=== PATIENT | female | born 1940 | race Caucasian/White ===

== ENCOUNTER 2019-06-14 12:32 | Emergency (ER) | payer OTHER, BC ==
[2019-06-14 12:38] VITALS: BMI 20.2
--- NOTE | 2019-06-14 13:03 | PDOC ---
History of Present Illness - General Chief Complaint: Abnormal Lab Results (Outside) Stated Complaint: ABNORMAL BLOOD WORK Time Seen by Provider: 06/14/19 12:55 - History of Present Illness Initial Comments: 06/14/19 14:04 78y/o F hx of diverticulitis, chronic watery diarrhea, hypothyroidism,GERD and tachycardia presents to the ED for evaluation for low Mg. She was sent by hr GI doctor, Dr. Rowell after labs were drawn last week for a regularly scheduled visit. Dr. Rowell is currently evaluating her for said diarrhea and per the pt , no diagnosis has been made at this time. She denies any chest pain, palpitations, tremors, abdominal pain, shortness of breath. Past History - Past Medical History Allergies/Adverse Reactions: Allergies Allergy/AdvReac Type Severity Reaction Status Date / Time No Known Allergies Allergy Verified 06/14/19 12:39 Home Medications: Ambulatory Orders Levothyroxine [Synthroid -] 0.05 mcg PO DAILY 06/14/19 Metoprolol Succinate 25 mg PO DAILY 06/14/19 Omeprazole 40 mg PO DAILY 06/14/19 COPD: No - Immunization History Immunization Up to Date: Yes - Suicide/Smoking/Psychosocial Hx Smoking History: Unknown if ever smoked Have you smoked in the past 12 months: No Information on smoking cessation initiated: No Hx Alcohol Use: No Drug/Substance Use Hx: No Review of Systems - Review of Systems Constitutional: No: Chills, Fever HEENTM: No: Blurred Vision, Tearing Respiratory: No: Cough, Shortness of Breath Cardiac (ROS): No: Chest Pain, Palpitations ABD/GI: Yes: Diarrhea. No: Abdominal Distended : No: Burning, Dysuria Musculoskeletal: No: Back Pain, Joint Pain Integumentary: No: Change in Color Neurological: No: Headache, Numbness *Physical Exam - Vital Signs Last Vital Signs Temp Pulse Resp BP Pulse Ox 98.1 F 68 16 137/69 100 06/14/19 12:36 06/14/19 12:36 06/14/19 12:36 06/14/19 12:36 06/14/19 12:36 - Physical Exam General Appearance: Yes: Appropriately Dressed, Thin. No: Apparent Distress HEENT: positive: Normal Voice. negative: Scleral Icterus (R), Scleral Icterus ( L) Neck: positive: Supple. negative: Tender Respiratory/Chest: positive: Crackles, Other (crackles at lung bases). negative : Chest Tender, Respiratory Distress, Accessory Muscle Use Cardiovascular: positive: Regular Rhythm, Regular Rate, S1, S2. negative: JVD Vascular Pulses: Dorsalis-Pedis (R): 1+, Doralis-Pedis (L): 1+ Gastrointestinal/Abdominal: positive: Normal Bowel Sounds, Soft, Protuberent. negative: Pulsatile Mass, Tenderness Musculoskeletal: positive: Normal Inspection. negative: CVA Tenderness Extremity: positive: Normal Capillary Refill, Normal Inspection, Normal Range of Motion, Pedal Edema Integumentary: positive: Normal Color, Dry, Warm Neurologic: positive: Fully Oriented, Alert, Normal Mood/Affect, Normal Response ED Treatment Course - LABORATORY CBC & Chemistry Diagram: 06/14/19 13:24 06/14/19 13:24 Medical Decision Making - Medical Decision Making 06/14/19 17:57 78y/o F hx of diverticulitis, chronic watery diarrhea, hypothyroidism,GERD and tachycardia presents to the ED for evaluation for low Mg. Labs/Meds/Imaging EKG, cmp. cbc, troponin, Mg Results EKG: sinus rhythm with occasional premature ventricular complexes and premature atrial complexes. no ST elevations. Mg 1.5 K+ 3.4 1st trop 0.08 2nd trop 0.08 Meds: KCL 40 meq PO magnesium 1gm IV normal saline 1000ml First and second troponin taken 3 hrs apart and stayed the same.No signs of AK on EKG.Pt discharged home with follow up with PCP Dr. Elizondo and Dr. Rowell her GI doctor. 06/16/19 09:37 06/16/19 09:42 06/16/19 09:47 *DC/Admit/Observation/Transfer Diagnosis at time of Disposition: Hypomagnesemia - Discharge Dispostion Disposition: HOME Condition at time of disposition: Stable Decision to Admit order: No - Referrals Referrals: Valeriano Rowell DO [Primary Care Provider] - - Patient Instructions Printed Discharge Instructions: DI for Hypomagnesemia Additional Instructions: Hypomagnesemia is a condition that develops when the amount of magnesium in your body is too low. Magnesium is a mineral that helps your heart, muscles, and nerves work normally. It also helps strengthen your bones RETURN TO THE ER You have numbness and tingling in your arms or legs. You have painful muscle spasms and tremors in your arms or legs. You are not able to move your muscles, and you have trouble thinking clearly. Your heartbeat is faster than usual, or is irregular. You have a seizure. Follow up with Dr. Rowell and your PCP Dr. Elizondo by the end of this week. - Post Discharge Activity
[2019-06-14] MEDS ORDERED: SODIUM CHLORIDE 0.9% 500 ML INFUS.BAG IV ONE (13:34)
[2019-06-14 13:41] LABS: BASO % 0.7 % (0-2.0); EOS % 4.6 % (0-4.5); HEMATOCRIT 36.2 % (32.4-45.2); HEMOGLOBIN 12.2 GM/dL (10.7-15.3); LYMPH % 21.1 % (8-40); MCH 29.8 pg (25.7-33.7); MCHC 33.8 g/dl (32.0-36.0); MEAN CELL VOLUME 88.2 fl (80-96); MEAN PLT VOLUME 6.8 fl (7.5-11.1); MONO % 8.1 % (3.8-10.2); NEUT % 65.5 % (42.8-82.8); PLATELET COUNT 398 K/MM3 (134-434); RBC 4.11 M/mm3 (3.60-5.2); RDW 14.9 % (11.6-15.6)
--- NOTE | 2019-06-14 13:51 | PDOC ---
Attending Attestation - Resident Resident Name: Meño Mann - ED Attending Attestation I have performed the following: I have examined & evaluated the patient, The case was reviewed & discussed with the resident, I agree w/resident's findings & plan, Exceptions are as noted - HPI HPI: 06/14/19 13:49 78y F hx hypothyroidism , acid reflux, diverticulosis presents with concern for abnormal magnesium level - pt has a hx of persistent watery diarrhea - had been evaluated by dr. flores - was noted to have low magnesium as an outpatient and told to come to the ED. The pt severino any abd pain, fever/chills, n/v, cp, sob, numbness/tingling/focal weakneass. pt notes her diarrhea is unchanged, occasionally will have 2-3 days without BM, but then will have one or two days of explosive watery diarrhea without melena/bpr. - Physicial Exam PE: 06/14/19 14:20 General: no acute distress Card: rrr, no mrg Pulm: cta b/l abd: soft nontender ext: no edema - Medical Decision Making 06/14/19 14:20 will recheck the pts lytes ekg to screen for abnoramlitis due to electrolyte derangement 06/14/19 16:31 pts labs reviewd K and Mg slightly low - repleted. pts trop noted at 0.08 - however pt does not have any complaints suggestive of cardiac/atypical acs - will obtain repeat trop ekg shows no signs suggestieve of acute mi Heart Score/ECG Review - ECG Impressions Comment:: 06/14/19 14:21 Twelve-lead EKG was performed and reviewed by me. There is normal sinus rhythm with a normal rate. Rate of 63 Nonspecific S T wave changes pvcs present
[2019-06-14 14:07] LABS: ALBUMIN 2.8 g/dl (3.4-5.0); BILIRUBIN,TOTAL 0.4 mg/dL (0.2-1); BLOOD UREA NITROGEN 13.3 mg/dL (7-18); CALCIUM 8.4 mg/dL (8.5-10.1); CREATININE 0.6 mg/dL (0.55-1.3); MAGNESIUM 1.5 mg/dL (1.8-2.4); POTASSIUM 3.4 mmol/L (3.5-5.1); TOT PROT 7.4 g/dl (6.4-8.2)
[2019-06-14] MEDS ORDERED: POTASSIUM CHLORIDE TABS 20 MEQ TABLET.ER (FP) PO ONE ×2 (14:55→15:10)
[2019-06-14] MEDS ORDERED: MAGNESIUM 1GM/D5W - 1 GM/100 ML IVPB IVPB ONE (15:10)
--- NOTE | 2019-06-14 15:21 | EKG ---
Test Reason : Blood Pressure : / mmHG Vent. Rate : 063 BPM Atrial Rate : 079 BPM P-R Int : 196 ms QRS Dur : 076 ms QT Int : 404 ms P-R-T Axes : 072 078 -07 degrees QTc Int : 413 ms SINUS RHYTHM WITH OCCASIONAL PREMATURE VENTRICULAR COMPLEXES AND PREMATURE ATRIAL COMPLEXES ABNORMAL ECG NO PREVIOUS ECGS AVAILABLE Confirmed by MD Llanos Edward ([id number]) on 06/14/2019 3:21:28 PM Referred By: Confirmed By:Rigo Llanos MD
[2019-06-14 15:30] VITALS: TEMP 98.3
[2019-06-14 18:15] VITALS: BP 124/52; PULSE 71
== END 2019-06-14 18:29 | disposition home or self-care (01) ==
LOC: SUPCPDRO 12:32 → JER 12:32
PROC: 3E033GC Introduction of Other Therapeutic Substance into Peripheral Vein, Percutaneous Approach (ICD-10-PCS; principal; 2019-06-14)
DX: E83.42 Hypomagnesemia (principal); E87.6 Hypokalemia; R19.7 Diarrhea, unspecified; K21.9 Gastro-esophageal reflux disease without esophagitis; E03.9 Hypothyroidism, unspecified
CPT/HCPCS: 36415; 80053; 83735; 84484; 85025; 93005; 93010; 96360; 99283-25

== ENCOUNTER 2019-09-27 07:27 | Day surgery (SDC) | payer OTHER, BC ==
[2019-09-26 13:42] VITALS: BMI 19.3
[2019-09-27 09:46] VITALS: TEMP 97.5
--- NOTE | 2019-09-27 10:52 | PN ---
Progress Note (short form) - Note Progress Note: Post procedure, patient noted to have protuberant abdomen and tympanitic. Non- tender. no N/V. Daughter states that her abdomen was protuberant prior to procedure but not to this extent. Proceeding with CT scan A/P.
[2019-09-27 11:41] LABS: BLOOD UREA NITROGEN 14.2 mg/dL (7-18); CALCIUM 8.7 mg/dL (8.5-10.1); CREATININE 0.4 mg/dL (0.55-1.3); POTASSIUM 4.1 mmol/L (3.5-5.1)
[2019-09-27 13:16] VITALS: BP 132/78; PULSE 52
--- NOTE | 2019-09-28 16:16 | PATH ---
Surgical Pathology Report Patient Name: HARRY ROB [facility]. Rec. #: [id number] /Age/Gender: 1940 (Age: 78) / F Account: [id number] Location: U-ENDOSCOPY Taken: 09/27/2019 Received: 09/27/2019 Reported: 09/28/2019 Physicians: Riaz Houser D.O. Specimen(s) Received A: DUODENUM B: EG JUNCTION Clinical History Change in bowel pattern, diarrhea Postoperative diagnosis: Hiatal hernia, esophagitis Final Diagnosis A. DUODENUM, BIOPSY: DUODENUM MUCOSA WITH NO SIGNIFICANT PATHOLOGIC CHANGE. NO HISTOLOGIC EVIDENCE OF CELIAC DISEASE. B. EG JUNCTION, BIOPSY: FRAGMENTS OF SQUAMOUS EPITHELIUM WITH FOCAL ACUTE INFLAMMATION AND CHANGES CONSISTENT WITH REFLUX ESOPHAGITIS. PAS STAIN FOR FUNGI IS NEGATIVE. NEGATIVE FOR INTESTINAL METAPLASIA. Electronically Signed Angelika Deluca M.D. Gross Description A. Received in formalin, labeled "duodenum biopsy" are 5 bourne, irregular portions of soft tissue ranging from 0.2-0.4 cm. in greatest dimension. The specimens are submitted in toto in one cassette. B. Received in formalin, labeled "EG junction biopsy" is a bourne, irregular portion of soft tissue measuring 0.4 cm. in greatest dimension. The specimen is submitted in toto in one cassette. 09/27/201909/27/2019
== END 2019-09-27 13:12 | disposition home or self-care (01) ==
LOC: JASU-ENDO 07:27
PROVIDERS: ATTEND Internal Medicine Gastroenterology
PROC: 0DB38ZX Excision of Lower Esophagus, Via Natural or Artificial Opening Endoscopic, Diagnostic (ICD-10-PCS; 2019-09-27)
PROC: 0DB98ZX Excision of Duodenum, Via Natural or Artificial Opening Endoscopic, Diagnostic (ICD-10-PCS; principal; 2019-09-27 08:30)
DX: K21.0 Gastro-esophageal reflux disease with esophagitis (principal); R19.7 Diarrhea, unspecified; R93.3 Abnormal findings on diagnostic imaging of other parts of digestive tract; I10 Essential (primary) hypertension; E03.9 Hypothyroidism, unspecified
CPT/HCPCS: 36415; 74176-TC; 80048; 82941; 86316; 88305-TC; 88312-TC

== ENCOUNTER 2019-11-22 17:39 | Inpatient (IN) | payer OTHER, BC ==
--- NOTE | 2019-11-22 17:58 | PDOC ---
Rapid Medical Evaluation Time Seen by Provider: 11/22/19 17:52 Medical Evaluation: Allergies Allergy/AdvReac Type Severity Reaction Status Date / Time No Known Allergies Allergy Verified 06/14/19 12:39 11/22/19 17:52 Pt presents to the ER for abdominal pain. Sent in by Dr. Riaz Houser for admission for SBO. Had a CT done at [address] this after noon which showed dilated loops of bowel. Exam: Distended firm abdomen. No pain. Orders: Labs, IV insert Pt to proceed to the ER for further evaluation Discharge Disposition - Diagnosis SBO (small bowel obstruction) - Referrals - Patient Instructions - Post Discharge Activity
--- NOTE | 2019-11-22 19:49 | PDOC ---
History of Present Illness - General Chief Complaint: Pain Stated Complaint: NAUSEA/ABD/PAIN Time Seen by Provider: 11/22/19 17:52 - History of Present Illness Initial Comments: The pt is a 79F w/ a history of hypothyroidism, Raynaud's, chronic constipation who presents for evaluation of 2 days of worsening abdominal distention and no BM for 2 days. She reports having a CT of the abdomen today that revealed evidence of obstruction and was told to present to the ED for admission. She currently reports generalized abdominal discomfort. She denies fevers/chills , nausea/vomiting, 11/22/19 20:11 Past History - Past Medical History Allergies/Adverse Reactions: Allergies Allergy/AdvReac Type Severity Reaction Status Date / Time No Known Allergies Allergy Verified 06/14/19 12:39 Home Medications: Ambulatory Orders Levothyroxine [Synthroid -] 0.05 mcg PO DAILY 06/14/19 Potassium Chloride 20 meq PO DAILY 09/26/19 COPD: No GI Disorders: Yes (DIVERTICULOSIS, DIARRHEA,GALLSTONES) HTN: Yes Thyroid Disease: Yes (HYPO) - Immunization History Immunization Up to Date: Yes - Psycho Social/Smoking Cessation Hx Smoking History: Former smoker Have you smoked in the past 12 months: No If you are a former smoker, when did you quit?: 2011 Information on smoking cessation initiated: No Hx Alcohol Use: No Drug/Substance Use Hx: No Substance Use Type: None Hx Substance Use Treatment: No Review of Systems - Review of Systems Able to Perform ROS?: Yes Comments:: GENERAL/CONSTITUTIONAL: No fever or chills. No weakness HEAD, EYES, EARS, NOSE AND THROAT: No change in vision. No change in hearing. No sore throat CARDIOVASCULAR: No chest pain or shortness of breath RESPIRATORY: Denies cough, hemoptysis GASTROINTESTINAL: Denies nausea; Endorses constipation GENITOURINARY: No dysuria, frequency, or change in urination MUSCULOSKELETAL: No joint or muscle swelling or pain. No neck or back pain SKIN: No rash NEUROLOGIC: No headache, vertigo, loss of consciousness, or change in strength/ sensation ENDOCRINE: No increased thirst. No abnormal weight change HEMATOLOGIC/LYMPHATIC: No anemia, easy bleeding, or history of blood clots ALLERGIC/IMMUNOLOGIC: No hives or skin allergy 11/22/19 19:49 Is the patient limited Lithuanian proficient: No *Physical Exam - Vital Signs Last Vital Signs Temp Pulse Resp BP Pulse Ox 98.2 F 110 H 20 143/90 96 11/22/19 17:53 11/22/19 17:53 11/22/19 17:53 11/22/19 17:53 11/22/19 17:53 - Physical Exam GENERAL: Awake, alert, and oriented to person/place/time, in no acute distress HEAD: No signs of trauma, normocephalic, atraumatic EYES: PERRLA, EOMI, sclera anicteric, conjunctiva clear ENT: Hearing grossly normal, nares patent, oropharynx clear without exudates. Moist mucosa LUNGS: No distress, speaks in full sentences, clear to auscultation bilaterally HEART: Regular rate w/ irregularly irregular rhythm, normal S1 and S2, no murmurs appreciated, peripheral pulses normal and equal bilaterally ABDOMEN: Distended, NTTP, normoactive bowel sounds EXTREMITIES: Normal inspection, Normal range of motion, no edema. No clubbing or cyanosis NEUROLOGICAL: Cranial nerves II through XII grossly intact. Normal speech, no focal sensorimotor deficits SKIN: Warm, Dry 11/22/19 19:49 ED Treatment Course - LABORATORY CBC & Chemistry Diagram: 11/22/19 19:52 11/22/19 19:52 Medical Decision Making - Medical Decision Making The pt is a 79F w/ a history of hypothyroidism, Raynaud's, chronic constipation who presents for evaluation of 2 days of worsening abdominal distention and no BM for 2 days concerning for obstruction Pt refusing repeat CT scan and NGT at this time Case discussed with Dr. Macias who agrees with NGT, labs, admission 11/22/19 20:19 Risks of not placing NGT again discussed with pt who verbalized understanding of risks including bowel perforation, , infection, bowel necrosis Pt amenable to obtaining CT w/o contrast given that we cannot see previous study performed today nor does she have the report from the study Lactate 1.5 No leukocytosis No CONCHITA LFTs unremarkable Pt continues to deny nausea 11/22/19 21:[address] Lowe CT non-contrast pending 11/22/19 21:[address] attempted, pt did not tolerate well and denied further attempts Pt signed out to [employer] Admitting Importance of NGT emphasized which pt verbalized understanding 11/22/19 22:29 Discharge - Discharge Information Problems reviewed: Yes Clinical Impression/Diagnosis: SBO (small bowel obstruction) Condition: Good - Admission Yes - Follow up/Referral - Patient Discharge Instructions - Post Discharge Activity
[2019-11-22] MEDS ORDERED: ACETAMINOPHEN INJECTION 100 ML IVPB ONE (20:05)
[2019-11-22] MEDS ORDERED: ACETAMINOPHEN 1000 MG/100 ML VIAL (NON FORMULARY) IVPB ONE (20:05)
--- NOTE | 2019-11-22 20:07 | PDOC ---
Attending Attestation - Resident Resident Name: Elliott Winn - ED Attending Attestation I have performed the following: I have examined & evaluated the patient, The case was reviewed & discussed with the resident, I agree w/resident's findings & plan - HPI HPI: 11/22/19 21:39 see resident hpi - Physicial Exam PE: 11/22/19 21:39 see resident exam - Medical Decision Making 11/22/19 21:[id number] female sent in by outpatient inspector wire rope due to positive CT scan performed today at an outside facility suggestive of bowel obstruction Unfortunately results are not obtainable, coverage for patient's GI contacted who is not able to access results either Patient initially refused CT scan, plain films showed markedly distended bowel throughout Patient has agreed to CT scan without contrast which was performed and again consistent with bowel loop distention She has repeatedly refused NG tube, patient was advised that she is at high risk for bowel perforation which could result in , again she is refusing NG tube On-call surgery was notified Will admit for further management We will attempt to contact family if patient allows to notify of refusal as well.
[2019-11-22 20:16] LABS: BASO % 0.6 % (0-2.0); EOS % 0.7 % (0-4.5); HEMATOCRIT 43.1 % (32.4-45.2); HEMOGLOBIN 14.1 GM/dL (10.7-15.3); LYMPH % 16.5 % (8-40); MCH 28.7 pg (25.7-33.7); MCHC 32.8 g/dl (32.0-36.0); MEAN CELL VOLUME 87.6 fl (80-96); MEAN PLT VOLUME 7.6 fl (7.5-11.1); MONO % 7.5 % (3.8-10.2); NEUT % 74.7 % (42.8-82.8); PLATELET COUNT 399 K/MM3 (134-434); RBC 4.92 M/mm3 (3.60-5.2); RDW 15.2 % (11.6-15.6); WHITE BLOOD COUNT 9.5 K/mm3 (4.0-10.0)
[2019-11-22 20:32] LABS: INR 1.03 (0.83-1.09); PROTHROMBIN TIME (PATIENT) 12.2 SEC (9.7-13.0)
[2019-11-22 21:03] LABS: ALBUMIN 3.6 g/dl (3.4-5.0); BILIRUBIN,TOTAL 0.6 mg/dL (0.2-1); CALCIUM 9.6 mg/dL (8.5-10.1); CREATININE 0.6 mg/dL (0.55-1.3); TOT PROT 8.5 g/dl (6.4-8.2)
[2019-11-22] MEDS: SODIUM CHLORIDE 1,000 ML IV SCH (21:41)
--- NOTE | 2019-11-22 21:45 | PN ---
Teaching Attending Note Name of Resident: Mark Stephen ATTENDING PHYSICIAN STATEMENT I saw and evaluated the patient. I reviewed the resident's note and discussed the case with the resident. I agree with the resident's findings and plan as documented. SUBJECTIVE: 79F w/ a history of hypothyroidism, Raynaud's, chronic constipation who presents for evaluation of 2 days of worsening abdominal distention and no BM for 2 days. Patient was sent in by her gastroenterologistDrPhylicia Franco, due to positive CT scan which showed small bowel obstruction at an outside facility. In the emergency room she refused NG tube, advised that she was high risk for perm bowel perforation. Surgery on-call was notified. She currently reports generalized abdominal discomfort. She denies fevers/chills , nausea/vomiting, Case was discussed with Dr. Short of surgery from the emergency room. OBJECTIVE: Last Vital Signs Temp Pulse Resp BP Pulse Ox 98.2 F 110 H 20 143/90 96 11/22/19 17:53 11/22/19 17:53 11/22/19 17:53 11/22/19 17:53 11/22/19 17:53 Physical exam showed an elderly, thin, cachectic woman not in any visible distress. Heart sounds were normal S1, S2 without any murmurs, rubs, gallops. Abdomen was tense, distended tympanic with decreased bowel sounds. No rashes appreciated Abnormal Lab Results 11/22/19 19:52 Sodium 134 L Random Glucose 121 H AST 52 H ALT 64 H Alkaline Phosphatase 121 H Total Protein 8.5 H Imaging studies reviewed Abdominal x-ray showed very distended loops of bowel with distal stool and possible distal obstruction. Could be a sigmoid volvulus. Ptosis or free air is not seen. Right hip pinning. CT of abdomen and pelvis without contrast was appreciated. At these moderate diffuse colonic fecal retention is noted. Small amount of perihepatic free fluid is noted laterally. Right inguinal hernia is noted to contain fluid only. Appendix cannot be definitively visualized. Cholelithiasis noted without CT evidence of acute cholecystitis. No obvious biliary tract dilatation. Pelvic floor prolapse is noted. 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 Was refusing NG tube. Admit to [facility] [place] [place] Official surgery consult Send lactic acid IV fluid hydration Keep n.p.o. PT, PTT, type and screen Check electrolytes and replete PRN IV morphine for pain control Zofran IV as needed if nausea or vomiting Patient refused NG tube and risks were explained to her #Transaminitisuncertain etiology Trend LFTs Avoid hepatotoxins #MalnutritionBMI of 18, borderline low Protein supplements twice daily after patient is no longer n.p.o. Dietary evaluation for calorie count SCDs for DVT prophylaxis
--- NOTE | 2019-11-22 22:27 | HP ---
CHIEF COMPLAINT: Abdominal pain PCP: Dr. Galeano HISTORY OF PRESENT ILLNESS: 79F PMH of Diverticulitis,diarrhea, gallstones, hypothyroidism, HTN, reynauds, glaucoma, chronic constipation, who presents today after CT Enterography showed small obstruction on outpatient imaging. Patient has most recently had chronic abdominal pain for which she was evaluated on 11/14/[address] Rowell. Today she feels slight abdominal pain, nausea that she attributes to PO contrast ingestion, no vomiting, and no diarrhea. Her last bowel movement was 2 days ago and was solid formed stool, she has passed gas today. Her last meal was a few hours before arriving to the ED which she was able to tolerate. She currently denies any chest pain, fevers, chills, and shortness of breath. Patient notes that she has lost ~70lbs over the past 2 years. She has had outpatient workup searching for abdominal masses and malignancy which has resulted negative, except for reported inflammation the jejunum as per her Daughter. ER course was notable for: (1) CT Abdomen/Pelvis was completed without contrast showed marked diffuse small bowel dilation and moderate diffuse colonic fecal retention. (2) Acetaminophen IV was given (3) NS @ 75 ml/hr was started Recent Travel: None PAST MEDICAL HISTORY: Diverticulitis, diarrhea, gallstones, hypothyroidism, HTN , reynaud's, glaucoma, inguinal hernia PAST SURGICAL HISTORY: detached retina repair, right hip repair (06/30) FAMILY MEDICAL HISTORY: mother: colon cancer, father: lung cancer, sister: dementia Social History: Smoking: Former smoker Alcohol: Denies Drugs: Denies Allergies No Known Allergies Allergy (Verified 06/14/19 12:39) HOME MEDICATIONS: Home Medications Medication Instructions Recorded Levothyroxine [Synthroid -] 0.05 mcg PO DAILY 06/14/19 Potassium Chloride 20 meq PO DAILY 09/26/19 REVIEW OF SYSTEMS CONSTITUTIONAL: Absent: fever, chills, diaphoresis, generalized weakness, malaise, loss of appetite, weight change HEENT: Absent: rhinorrhea, nasal congestion, throat pain, throat swelling, difficulty swallowing, mouth swelling, ear pain, eye pain, visual changes CARDIOVASCULAR: Absent: chest pain, syncope, palpitations, irregular heart rate, lightheadedness , peripheral edema RESPIRATORY: Absent: cough, shortness of breath, dyspnea with exertion, orthopnea, wheezing, stridor, hemoptysis GASTROINTESTINAL: Present: abdominal pain, abdominal distension Absent: nausea, vomiting, diarrhea, constipation, melena, hematochezia GENITOURINARY: Absent: dysuria, frequency, urgency, hesitancy, hematuria, flank pain, genital pain MUSCULOSKELETAL: Absent: myalgia, arthralgia, joint swelling, back pain, neck pain SKIN: Absent: rash, itching, pallor HEMATOLOGIC/IMMUNOLOGIC: Absent: easy bleeding, easy bruising, lymphadenopathy, frequent infections ENDOCRINE: Absent: unexplained weight gain, unexplained weight loss, heat intolerance, cold intolerance NEUROLOGIC: Absent: headache, focal weakness or paresthesias, dizziness, unsteady gait, seizure, mental status changes, bladder or bowel incontinence PHYSICAL EXAMINATION Vital Signs - 24 hr 11/22/19 17:53 Temperature 98.2 F Pulse Rate 110 H Respiratory 20 Rate Blood Pressure 143/90 O2 Sat by Pulse 96 Oximetry (%) GENERAL: Awake, alert, and fully oriented, in no acute distress. HEAD: Normal with no signs of trauma. EYES: EOMI, sclera anicteric EARS, NOSE, THROAT: . Moist mucous membranes. NECK: Normal range of motion, supple without lymphadenopathy, JVD, or masses. LUNGS: Breath sounds equal, clear to auscultation bilaterally. No wheezes, and no crackles. HEART: Regular rate and rhythm, normal S1 and S2 without murmur, rub or gallop. ABDOMEN: Hypoactive bowel sounds, distended abdomen, nontender to palpation. MUSCULOSKELETAL: No bony deformities. EXTREMITIES: 2+ pulses, warm, well-perfused. No calf tenderness. No peripheral edema. SKIN: Warm, dry, normal turgor, no rashes or lesions noted, normal capillary refill. Laboratory Results - last 24 hr 11/22/19 11/22/19 11/22/19 19:52 19:52 19:52 WBC 9.5 RBC 4.92 Hgb 14.1 Hct 43.1 D MCV 87.6 MCH 28.7 MCHC 32.8 RDW 15.2 Plt Count 399 MPV 7.6 D Absolute Neuts (auto) 7.1 Neutrophils % 74.7 Lymphocytes % 16.5 D Monocytes % 7.5 Eosinophils % 0.7 D Basophils % 0.6 Nucleated RBC % 0 PT with INR 12.20 INR 1.03 Sodium 134 L Potassium 4.0 Chloride 98 Carbon Dioxide 28 Anion Gap 8 BUN 16.0 Creatinine 0.6 Est GFR (CKD-EPI)AfAm 101.90 Est GFR (CKD-EPI)NonAf 87.92 Random Glucose 121 H Lactic Acid Calcium 9.6 Total Bilirubin 0.6 AST 52 H ALT 64 H Alkaline Phosphatase 121 H Total Protein 8.5 H Albumin 3.6 Blood Type Antibody Screen 11/22/19 11/22/19 11/22/19 19:52 20:00 20:00 WBC RBC Hgb Hct MCV MCH MCHC RDW Plt Count MPV Absolute Neuts (auto) Neutrophils % Lymphocytes % Monocytes % Eosinophils % Basophils % Nucleated RBC % PT with INR INR Sodium Potassium Chloride Carbon Dioxide Anion Gap BUN Creatinine Est GFR (CKD-EPI)AfAm Est GFR (CKD-EPI)NonAf Random Glucose Lactic Acid 1.5 Calcium Total Bilirubin AST ALT Alkaline Phosphatase Total Protein Albumin Blood Type Cancelled O POSITIVE Antibody Screen Cancelled Negative IMAGING: CT Abdomen/Pelvis: There is marked diffuse small bowel dilatation. At least moderate diffuse colonic fecal retention. A right inguinal hernia seen which appears to contain fluid only. No obvious associated bowel herniation is seen on this exam. Correlation with the results of a CT study apparently performed earlier the different facility is suggested. There is moderate fluid-filled distention of the partially imaged thoracic esophagus. Small amount of perihepatic free fluid. Cholelithiasis. Pelvic floor prolapse. Chest X-Ray:2 views of the chest reveal distended bowel compatible with an obstructive process, coarse lung changes and possible atelectasis or infiltrate at the medial right base. There may be some small bullous changes at the right base. The mediastinum is not widened. The bones and soft tissues are intact. Abdomen X-Ray: 2 views of the abdomen reveal very distended loops of bowel with distal stool and possible distal obstruction. There could be a sigmoid volvulus. Pneumatosis or free air is not seen. There is a right hip pinning. ASSESSMENT/PLAN: 79F PMH of Diverticulitis,diarrhea, gallstones, hypothyroidism, HTN, reynauds, glaucoma, chronic constipation who presents today with small bowel obstruction. 1) Small Bowel Obstruction -Patient follows terrie Rowell who ordered outpatient CT enterography study. Will follow up imaging studies and retrieve records in the AM. As per Dr. Rowell note in [employer]: dilated bowel loops, concer for distal bowel obstruction possibly in the proximal colon. Potential tumor/cancer of the GI tract needs to be excluded -Previous colonoscopy: 01/15/18: multiple 1-2 mm polyps in the rectume and at the recto-sigmoid colon, resected and retrieved. Diverticulosis in the sigmoid colon , descending and ascending colon. Non bleeding internal hemorrhoids present. Repeat colonoscopy in 5 years. -Previous endoscopy: 09/27/19: reflux esophagitis in the distal esophagus, 3 cm hiatal hernia, redundant/angulated idstal stomach, duondaneal mucosa showed no abnormalities from the bulb to the 4th part of the duodenum. Pantoprazole for 6 weeks, daily -NPO -NGT placement was attempted, failed x2. Patient refused further attempts -Morphine 2 mg Q3H PRN for pain management -Zofran Q4H for nausea/vomiting 2)Transaminitis -Follow up CMP in AM -Avoid hepatotoxic medications 3) Malnutrition -Reported 70 lb weight loss over 2 years -Dietary evaluation 4) Hx of Hypothyroid -Synthroid IV 37.5 mg Daily F: NS @ 75 E: Monitor CMP N: NPO Dispo: Admit to med/surg Visit type - Emergency Visit Emergency Visit: Yes ED Registration Date: 11/22/19 Care time: The patient presented to the Emergency Department on the above date and was hospitalized for further evaluation of their emergent condition. - New Patient This patient is new to me today: Yes Date on this admission: 11/23/19 - Critical Care Critical Care patient: No ATTENDING PHYSICIAN STATEMENT I saw and evaluated the patient. I reviewed the resident's note and discussed the case with the resident. I agree with the resident's findings and plan as documented. SUBJECTIVE: OBJECTIVE: ASSESSMENT AND PLAN:
[2019-11-22] MEDS ORDERED: HEPARIN NA (PORCINE) 5,000 UNITS/ML 1ML VIAL SQ SCH (22:30)
[2019-11-22] MEDS ORDERED: ACETAMINOPHEN 1000 MG/100 ML VIAL (NON FORMULARY) IVPB PRN (22:56)
[2019-11-22] MEDS ORDERED: HEPARIN NA (PORCINE) 5,000 UNITS/ML 1ML VIAL ONE (23:24)
[2019-11-23 02:08] LABS: EPI CELLS 2.2 /HPF (0-5/HPF); HYALINE CASTS 2 /lpf (0-8); PH,URINE 5.5 (5.0-8.0); URINE APPEARANCE CLOUDY; URINE BILIRUBIN NEGATIVE (NEGATIVE); URINE COLOR YELLOW; URINE GLUCOSE (UA) NEGATIVE (NEGATIVE); URINE KETONE NEGATIVE (NEGATIVE); URINE LEUK ESTERASE NEGATIVE (NEGATIVE); URINE NITRITE NEGATIVE (NEGATIVE); URINE PROTEIN TRACE (NEGATIVE); URINE RBC 11 /hpf (0-4); URINE UROBILINOGEN 0.2 mg/dL (0.2-1.0); URINE WBC 6 /hpf (0-5)
[2019-11-23] MEDS ORDERED: MORPHINE SULFATE 2 MG/ML VIAL IVPUSH PRN (02:37)
[2019-11-23] MEDS ORDERED: ONDANSETRON 4 MG/2 ML VIAL IVPUSH PRN (02:38)
[2019-11-23 04:28] VITALS: BMI 19.7
[2019-11-23] MEDS: LEVOTHYROXINE SODIUM 100 MCG VIAL IVPUSH SCH ×2 (06:20→10:42)
--- NOTE | 2019-11-23 08:17 | PN ---
Progress Note, Physician Chief Complaint: Mild diffuse abdominal pain, improving since yesterday. Passing flatus History of Present Illness: 79F PMH of Diverticulitis,diarrhea, gallstones, hypothyroidism, HTN, reynauds, glaucoma, chronic constipation who presents with small bowel obstruction. Surgery following and being medically managed - Current Medication List Current Medications: Active Medications Sodium Chloride (Normal Saline -) 1,000 mls @ 75 mls/hr IV ASDIR [facility] Last Admin: 11/22/19 21:41 Dose: 75 mls/hr Levothyroxine Sodium (Synthroid Injection -) 37.5 mcg IVPUSH DAILY [facility] Last Admin: 11/23/19 06:20 Dose: 37.5 mcg Morphine Sulfate (Morphine Sulfate) 2 mg IVPUSH Q3H PRN PRN Reason: PAIN LEVEL 6-10 Ondansetron HCl (Zofran Injection) 4 mg IVPUSH Q4H PRN PRN Reason: NAUSEA AND/OR VOMITING - Objective Vital Signs: Vital Signs Temperature 98 F 11/23/19 06:00 Pulse Rate 92 H 11/23/19 06:00 Respiratory Rate 20 11/23/19 06:00 Blood Pressure 134/65 11/23/19 06:00 O2 Sat by Pulse Oximetry (%) 99 11/23/19 04:30 Constitutional: Yes: No Distress, Calm, Thin Eyes: Yes: WNL, Conjunctiva Clear HENT: Yes: WNL, Atraumatic, Normocephalic Neck: Yes: WNL, Supple, Trachea Midline Cardiovascular: Yes: WNL, Regular Rate and Rhythm Respiratory: Yes: WNL, Regular, CTA Bilaterally Gastrointestinal: Yes: Soft, Hernia (right inguinal-reducible), Hypoactive Bowel Sounds, Tenderness (diffuse) ...Rectal Exam: Yes: Deferred Genitourinary: Yes: WNL Breast(s): Yes: WNL Musculoskeletal: Yes: WNL Extremities: Yes: WNL Edema: No Peripheral Pulses WNL: Yes Peripheral Pulses: Left Radial: 2+, Right Radial: 2+, Left Doralis Pedis: 2+, Right Dorsalis Pedis: 2+, Left Femoral: 2+, Right Femoral: 2+ Integumentary: Yes: WNL Neurological: Yes: WNL, Alert, Oriented ...Motor Strength: WNL Psychiatric: Yes: WNL Labs: CBC, BMP 11/22/19 19:52 11/22/19 19:52 INR, PTT INR 1.03 (0.83-1.09) 11/22/19 19:52 - ....Imaging Cat Scan: Report Reviewed (Abd CT: marked diffuse small bowel dilation and moderate diffuse colonic fecal retention.) EKG: Image Reviewed (SR with PACs) Problem List - Problems (1) Hypothyroidism Assessment/Plan: on synthroid at home will convert to IV dose Code(s): E03.9 - HYPOTHYROIDISM, UNSPECIFIED (2) HTN (hypertension) Assessment/Plan: normotensive presently Code(s): I10 - ESSENTIAL (PRIMARY) HYPERTENSION (3) Prophylactic measure Assessment/Plan: FEN Fluids: IVF while NPO Electrolytes: monitor & replete as needed Nutrition: NPO DVT moderate risk sq heparin Dispo Maintain as inpatient full code discharge planning Code(s): Z29.9 - ENCOUNTER FOR PROPHYLACTIC MEASURES, UNSPECIFIED (4) Severe malnutrition Assessment/Plan: severe malnutrition as evidenced by BMI 19, temporal and temporal wasting NPO presently if prolonged NPo will start clininimix dietary supplements when able to eat Code(s): E43 - UNSPECIFIED SEVERE PROTEIN-CALORIE MALNUTRITION (5) Transaminitis Assessment/Plan: mild transaminitis avoid heaptoxic agents follows with Dr Mccurdy She had a EGD/enteroscopy 09/[address] scan at the time revealed dilated bowel.Coloscopy several years ago with 2 polyps removed. Last sun Code(s): R74.0 - NONSPEC ELEV OF LEVELS OF TRANSAMNS & LACTIC ACID DEHYDRGNSE (6) SBO (small bowel obstruction) Assessment/Plan: dilated loops of bowel with large fecal burden maintain NPO IVF no NGT needed at this time, if vomiting will re-evaluate surgery following Code(s): K56.609 - UNSP INTESTNL OBST, UNSP TO PARTIAL VERSUS COMPLETE OBST (7) Elevated troponin I level Assessment/Plan: Trop .05/.09/.09 no c/o chest pain no ischemic changes on EKG, most likely r/t demand ischemia vs ACS will cont to trend trop until peaks Code(s): R79.89 - OTHER SPECIFIED ABNORMAL FINDINGS OF BLOOD CHEMISTRY (8) Inguinal hernia Assessment/Plan: reducible right inguinal hernia noted Code(s): K40.90 - UNIL INGUINAL HERNIA, W/O OBST OR GANGR, NOT SPCF RECUR Visit type - Emergency Visit Emergency Visit: Yes ED Registration Date: 11/22/19 Care time: The patient presented to the Emergency Department on the above date and was hospitalized for further evaluation of their emergent condition. - New Patient This patient is new to me today: Yes Date on this admission: 11/23/19 - Critical Care Critical Care patient: No - Discharge Referral Referred to [facility] No
[2019-11-23 08:58] LABS: BASO % 0.9 % (0-2.0); EOS % 0.9 % (0-4.5); HEMATOCRIT 36.7 % (32.4-45.2); HEMOGLOBIN 12.2 GM/dL (10.7-15.3); LYMPH % 15.4 % (8-40); MCH 28.9 pg (25.7-33.7); MCHC 33.2 g/dl (32.0-36.0); MEAN CELL VOLUME 87.1 fl (80-96); MEAN PLT VOLUME 7.8 fl (7.5-11.1); MONO % 6.9 % (3.8-10.2); NEUT % 75.9 % (42.8-82.8); PLATELET COUNT 337 K/MM3 (134-434); RBC 4.21 M/mm3 (3.60-5.2); RDW 15.9 % (11.6-15.6); WHITE BLOOD COUNT 7.8 K/mm3 (4.0-10.0)
[2019-11-23 09:13] LABS: INR 1.05 (0.83-1.09); PROTHROMBIN TIME (PATIENT) 12.4 SEC (9.7-13.0)
[2019-11-23 09:16] LABS: ACTIVATED PTT 32.5 SECONDS (25.2-36.5)
[2019-11-23 09:34] LABS: BILIRUBIN,TOTAL 0.7 mg/dL (0.2-1); BLOOD UREA NITROGEN 15.1 mg/dL (7-18); CALCIUM 8.8 mg/dL (8.5-10.1); CREATININE 0.5 mg/dL (0.55-1.3); MAGNESIUM 2.1 mg/dL (1.8-2.4); PHOSPHOROUS 4.4 mg/dL (2.5-4.9); POTASSIUM 3.8 mmol/L (3.5-5.1); TOT PROT 7.2 g/dl (6.4-8.2)
--- NOTE | 2019-11-23 10:42 | EKG ---
Test Reason : Blood Pressure : / mmHG Vent. Rate : 082 BPM Atrial Rate : 082 BPM P-R Int : 202 ms QRS Dur : 068 ms QT Int : 362 ms P-R-T Axes : 000 120 027 degrees QTc Int : 422 ms POOR DATA QUALITY, INTERPRETATION MAY BE ADVERSELY AFFECTED SINUS RHYTHM WITH PREMATURE ATRIAL COMPLEXES AND PREMATURE VENTRICULAR COMPLEXES OR FUSION COMPLEXES ANTEROLATERAL INFARCT , AGE UNDETERMINED ABNORMAL ECG Confirmed by Yoseph Whitman MD ([id number]) on 11/23/2019 10:42:07 AM Referred By: Confirmed By:Yoseph Whitman MD
--- NOTE | 2019-11-23 15:05 | CONSULT ---
- Consultation REQUESTING PROVIDER: CONSULT REQUEST: We have been asked to surgically evaluate this patient for bowel obstruction. PCP:ADRIANA Soria HISTORY OF PRESENT ILLNESS: The patient is a 79 yo female who was sent for admission after her CT enterography revealed dilated bowel possible bowel obstruction as an outpt. She has been having diarrhea/constipation symptoms over the past several months with abd distention. She had a EGD/enteroscopy completed in September of [address] Houser and a CT scan at the time revealed dilated bowel. Since then she has been treated by him as an outpt for her abd complaints. She states that her appetite is somewhat decrease and she has lost weight over the past year. Her last colonscopy was several years ago and two polys were removed. Her last Bm was Thursday, she usually takes stool softners to have a BM. PMHx: afib? not on AC, HTN PSHx: bladder surgery Home Medications Medication Instructions Recorded Gabapentin 300 mg PO DAILY 11/23/19 Levothyroxine [Synthroid -] 50 mcg PO DAILY 11/23/19 Pantoprazole Sodium [Protonix -] 20 mg PO DAILY 11/23/19 Rifaximin [Xifaxan] 550 mg PO TID 11/23/19 Tramadol HCl 50 mg PO TID PRN 11/23/19 Allergies Allergy/AdvReac Type Severity Reaction Status Date / Time No Known Allergies Allergy Verified 06/14/19 12:39 REVIEW OF SYSTEMS: CONSTITUTIONAL: Absent: fever, chills, weight loose over the past year, decreased appetite CARDIOVASCULAR: Absent: chest pain, palpitations RESPIRATORY: Absent: cough, shortness of breath, dyspnea with exertion, wheezing, stridor, hemoptysis GASTROINTESTINAL: Absent: abdominal pain, abdominal distension, nausea, vomiting, diarrhea, constipation for the past year PHYSICAL EXAM: GENERAL: Awake, alert, and fully oriented, in no acute distress. HEAD: Normal with no signs of trauma. LUNGS: Clear to auscultation bilat anteriorly. HEART: Regular rate and rhythm. ABDOMEN: Soft, distended. non-tender. reducible RIH Rectal: no masses or gross blood with examination. Hard stool in vault. NEUROLOGICAL: Normal speech, gait not observed. Vital Signs Temperature 98 F 11/23/19 06:00 Pulse Rate 92 H 11/23/19 06:00 Respiratory Rate 20 11/23/19 06:00 Blood Pressure 134/65 11/23/19 06:00 O2 Sat by Pulse Oximetry (%) 99 11/23/19 04:30 Lab Results WBC 7.8 K/mm3 (4.0-10.0) 11/23/19 07:56 RBC 4.21 M/mm3 (3.60-5.2) 11/23/19 07:56 Hgb 12.2 GM/dL (10.7-15.3) 11/23/19 07:56 Hct 36.7 % (32.4-45.2) 11/23/19 07:56 MCV 87.1 fl (80-96) 11/23/19 07:56 MCHC 33.2 g/dl (32.0-36.0) 11/23/19 07:56 RDW 15.9 % (11.6-15.6) H 11/23/19 07:56 Plt Count 337 K/MM3 (134-434) 11/23/19 07:56 Sodium 135 mmol/L (136-145) L 11/23/19 07:56 Potassium 3.8 mmol/L (3.5-5.1) 11/23/19 07:56 Chloride 102 mmol/L (98-107) 11/23/19 07:56 Carbon Dioxide 27 mmol/L (21-32) 11/23/19 07:56 Anion Gap 7 MMOL/L (8-16) L 11/23/19 07:56 BUN 15.1 mg/dL (7-18) 11/23/19 07:56 Creatinine 0.5 mg/dL (0.55-1.3) L 11/23/19 07:56 Random Glucose 97 mg/dL (74-106) 11/23/19 07:56 Calcium 8.8 mg/dL (8.5-10.1) 11/23/19 07:56 Blood Type O POSITIVE 11/22/19 20:00 Antibody Screen Negative 11/22/19 20:00 INR 1.05 (0.83-1.09) 11/23/19 07:56 CT scan: dilated SB, fecal retention, RIH fluid filled A/p: 79 yo female with dilated SB pt seen and examined with Yao Lowe this afternoon recommend npo, ngt if vomits/IV hydration Plan for bowel prep tomorrow and colonoscopy 11/25 Obtain results of MRI abd/completed as an outpt
[2019-11-23] MEDS ORDERED: ACETAMINOPHEN 1000 MG/100 ML VIAL (NON FORMULARY) IVPB PRN (16:32)
[2019-11-23] MEDS: SODIUM CHLORIDE 1,000 ML IV SCH (17:21)
--- NOTE | 2019-11-23 18:39 | PN.GI ---
GI Progress Note Subjective: Patient known to and sent in by Dr. Jaren Houser for question of bowel obstruction with CT enterography revealing dilated distal esophagus, distended stomach, moderately distended small bowel loops (including some with fecal contents), transverse colon dilated and air filled (ascending colon not well visuailzed) thought to be suspicious for bowel obstruction. 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 Lonstanding, untreated RA but not seen for some time by surgical instrument maker. Reporting flatus, but no BM for 2-3 days. Uncertain of last colonoscopy. 70 pound weight loss. No abdominal pain. No emesis. CBC and chem-20 largely unremarkable except for low albumin. - Objective Vital Signs: Vital Signs Temperature 98 F 11/23/19 15:08 Pulse Rate 67 11/23/19 15:08 Respiratory Rate 18 11/23/19 15:08 Blood Pressure 113/58 L 11/23/19 15:08 O2 Sat by Pulse Oximetry (%) 97 11/23/19 09:00 Cardiovascular: Yes: Regular Rate and Rhythm, S1, S2 Respiratory: Yes: WNL Gastrointestinal Inspection: Yes: Distention ((mildly distended)) ...Auscultate: Yes: Normoactive Bowel Sounds ...Palpate: Yes: Soft. No: Guarding, Mass, Tenderness ...Percussion: Yes: Tympanitic ((mildly)) Labs: CBC, BMP 11/23/19 07:56 11/23/19 07:56 INR, PTT INR 1.05 (0.83-1.09) 11/23/19 07:56 - ....Imaging Cat Scan: Report Reviewed, Image Reviewed (Diffuse small bowel dilatation, moderate diffuse colonic fecal retention, right inguinal hernia without associated bowel inclusion.) Assessment/Plan Uncertain etiology to new/progressive gibson-GI dilatation in setting of evaluation for diarrheal illness. 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 For now favor PEG purge for colonoscopy tomorrow. Patient in agreement and understands plan Clear liquids for now; NPO after midnight. Dr. Houser returns tomorrow.
[2019-11-23] MEDS: HEPARIN NA (PORCINE) 5,000 UNITS/ML 1ML VIAL SQ SCH (21:39)
[2019-11-23] MEDS: PANTOPRAZOLE SODIUM 40 MG VIAL IVPUSH SCH (21:39)
[2019-11-24] MEDS: SODIUM CHLORIDE 1,000 ML IV SCH (06:26)
--- NOTE | 2019-11-24 08:02 | PN ---
Progress Note, Physician Chief Complaint: Abdominal pain improved. Passing liquid stool overnight/flatus. Abd distension much improved History of Present Illness: 79F PMH of Diverticulitis,diarrhea, gallstones, hypothyroidism, HTN, reynauds, glaucoma, chronic constipation who presents with small bowel obstruction. Surgery following and being medically managed - Current Medication List Current Medications: Active Medications Acetaminophen (Ofirmev Injection -) 1,000 mg IVPB Q6H PRN PRN Reason: PAIN LEVEL 4 - 6 Stop: 11/24/19 16:32 Heparin Sodium (Porcine) (Heparin -) 5,000 unit SQ BID [facility] Last Admin: 11/23/19 21:39 Dose: 5,000 unit Sodium Chloride (Normal Saline -) 1,000 mls @ 75 mls/hr IV ASDIR [facility] Last Admin: 11/24/19 06:26 Dose: 75 mls/hr Levothyroxine Sodium (Synthroid Injection -) 37.5 mcg IVPUSH DAILY [facility] Last Admin: 11/23/19 10:42 Dose: 37.5 mcg Morphine Sulfate (Morphine Sulfate) 2 mg IVPUSH Q3H PRN PRN Reason: PAIN LEVEL 6-10 Ondansetron HCl (Zofran Injection) 4 mg IVPUSH Q4H PRN PRN Reason: NAUSEA AND/OR VOMITING Pantoprazole Sodium (Protonix Iv) 40 mg IVPUSH HS [facility] Last Admin: 11/23/19 21:39 Dose: 40 mg - Objective Vital Signs: Vital Signs Temperature 97.3 F L 11/24/19 05:18 Pulse Rate 62 11/24/19 05:18 Respiratory Rate 18 11/24/19 05:18 Blood Pressure 125/64 11/24/19 05:18 O2 Sat by Pulse Oximetry (%) 97 11/23/19 09:00 Additional Findings/Remarks: Constitutional: Yes: No Distress, Calm, Thin Eyes: Yes: WNL, Conjunctiva Clear HENT: Yes: WNL, Atraumatic, Normocephalic Neck: Yes: WNL, Supple, Trachea Midline Cardiovascular: Yes: WNL, Regular Rate and Rhythm Respiratory: Yes: WNL, Regular, CTA Bilaterally Gastrointestinal: Yes: Soft, Hernia (right inguinal-reducible), Normoactive Bowel Sounds. Distension resolved ...Rectal Exam: Yes: Deferred Genitourinary: Yes: WNL Breast(s): Yes: WNL Musculoskeletal: Yes: WNL Extremities: Yes: WNL Edema: No Peripheral Pulses WNL: Yes Peripheral Pulses: Left Radial: 2+, Right Radial: 2+, Left Doralis Pedis: 2+, Right Dorsalis Pedis: 2+, Left Femoral: 2+, Right Femoral: 2+ Integumentary: Yes: WNL Neurological: Yes: WNL, Alert, Oriented ...Motor Strength: WNL Psychiatric: Yes: WNL Labs: CBC, BMP 11/23/19 07:56 11/23/19 07:56 INR, PTT INR 1.05 (0.83-1.09) 11/23/19 07:56 - ....Imaging Cat Scan: Report Reviewed (Abd CT: marked diffuse small bowel dilation and moderate diffuse colonic fecal retention) EKG: Image Reviewed (SR with PACs) Problem List - Problems (1) Hypothyroidism Assessment/Plan: c/w IV synthroid Code(s): E03.9 - HYPOTHYROIDISM, UNSPECIFIED (2) HTN (hypertension) Assessment/Plan: normotensive presently Code(s): I10 - ESSENTIAL (PRIMARY) HYPERTENSION (3) Prophylactic measure Assessment/Plan: FEN Fluids: IVF while NPO Electrolytes: monitor & replete as needed Nutrition: Clinimix to start. Can start clear liquids, NPO again afetr [place] for coloscopy DVT moderate risk sq heparin Dispo Maintain as inpatient full code discharge planning Code(s): Z29.9 - ENCOUNTER FOR PROPHYLACTIC MEASURES, UNSPECIFIED (4) Severe malnutrition Assessment/Plan: severe malnutrition as evidenced by BMI 19, temporal and temporal wasting NPO presently start clinimix dietary supplements when able to eat Code(s): E43 - UNSPECIFIED SEVERE PROTEIN-CALORIE MALNUTRITION (5) Transaminitis Assessment/Plan: mild transaminitis avoid heaptoxic agents follows with Dr Mccurdy She had a EGD/enteroscopy 09/[address] scan at the time revealed dilated bowel.Coloscopy several years ago with 2 polyps removed. Code(s): R74.0 - NONSPEC ELEV OF LEVELS OF TRANSAMNS & LACTIC ACID DEHYDRGNSE (6) SBO (small bowel obstruction) Assessment/Plan: resolving IVF until CLinimix starts then stop no NGT needed at this time, if vomiting will re-evaluate surgery following planned for colonscopy in am with Dr Mccurdy Bowel prep ordered Code(s): K56.609 - UNSP INTESTNL OBST, UNSP TO PARTIAL VERSUS COMPLETE OBST (7) Elevated troponin I level Assessment/Plan: Trop .05/.09/./.16/.18/.16 no c/o chest pain no ischemic changes on EKG, most likely r/t demand ischemia vs ACS appreciates cardiology consult obtained Lexiscan results from 01/27 and neagative no further trop needed Code(s): R79.89 - OTHER SPECIFIED ABNORMAL FINDINGS OF BLOOD CHEMISTRY (8) Inguinal hernia Assessment/Plan: reducible right inguinal hernia noted Code(s): K40.90 - UNIL INGUINAL HERNIA, W/O OBST OR GANGR, NOT SPCF RECUR (9) Connective tissue disease Assessment/Plan: pt declined to see rheumotolgy, stated " I'm 79 y/o and I've have enough doctors seeing me" stopped seeing home rheumo and tx for RA agreed to send labs to r/o sclemaderma Code(s): M35.9 - SYSTEMIC INVOLVEMENT OF CONNECTIVE TISSUE, UNSPECIFIED Visit type - Emergency Visit Emergency Visit: Yes ED Registration Date: 11/22/19 Care time: The patient presented to the Emergency Department on the above date and was hospitalized for further evaluation of their emergent condition. - New Patient This patient is new to me today: No - Critical Care Critical Care patient: No - Discharge Referral Referred to [facility] No
[2019-11-24] MEDS ORDERED: PEG 3350/NA SULF BICARB CL/KCL 4000 ML SOLN.RECON PO ONE (08:56)
[2019-11-24] MEDS ORDERED: POLYETHYLENE GLYCOL 3350 255 GM BTL PO ONE (08:57)
[2019-11-24 09:18] LABS: BASO % 0.9 % (0-2.0); EOS % 0.9 % (0-4.5); HEMATOCRIT 34.8 % (32.4-45.2); HEMOGLOBIN 11.7 GM/dL (10.7-15.3); LYMPH % 15.6 % (8-40); MCH 29.3 pg (25.7-33.7); MCHC 33.6 g/dl (32.0-36.0); MEAN CELL VOLUME 87.2 fl (80-96); MEAN PLT VOLUME 7.5 fl (7.5-11.1); NEUT % 76.6 % (42.8-82.8); PLATELET COUNT 303 K/MM3 (134-434); RBC 3.99 M/mm3 (3.60-5.2); RDW 15.2 % (11.6-15.6); WHITE BLOOD COUNT 5.8 K/mm3 (4.0-10.0)
[2019-11-24] MEDS: LEVOTHYROXINE SODIUM 100 MCG VIAL IVPUSH SCH (09:32)
[2019-11-24] MEDS: HEPARIN NA (PORCINE) 5,000 UNITS/ML 1ML VIAL SQ SCH ×2 (09:33→21:11)
[2019-11-24 10:06] LABS: ALBUMIN 2.5 g/dl (3.4-5.0); BILIRUBIN,TOTAL 0.7 mg/dL (0.2-1); BLOOD UREA NITROGEN 13.8 mg/dL (7-18); CALCIUM 7.8 mg/dL (8.5-10.1); CREATININE 0.4 mg/dL (0.55-1.3); MAGNESIUM 1.9 mg/dL (1.8-2.4); POTASSIUM 3.6 mmol/L (3.5-5.1); TOT PROT 6.1 g/dl (6.4-8.2)
--- NOTE | 2019-11-24 10:24 | PN ---
Progress Note (short form) - Note Progress Note: 79yo F concerned for ilieus vs sbo, pt seen and examined at bedside. Pt today states that she has been having diarrhea all night and that her abd has gotten much smaller and softer. Pt denies n/v, fever, chills. Last Vital Signs Temp Pulse Resp BP Pulse Ox 97.3 F L 62 18 125/64 97 11/24/19 05:18 11/24/19 05:18 11/24/19 05:18 11/24/19 05:18 11/23/19 09:00 CBC, BMP 11/24/19 08:00 11/24/19 08:00 PE: Gen: A&O X3 Resp: breathing comfortably Abd; soft, nondistended, nontender Ext: no edema Problem List - Problems (1) SBO (small bowel obstruction) Assessment/Plan: Plan -pt appears to have open up clinically, as abd is now benign. Pt is scheduled for colonoscopy today, will follow up results. -no need for surgical intervention at this time Pt discussed with Dr. Lowe who agrees with plan Code(s): K56.609 - UNSP INTESTNL OBST, UNSP TO PARTIAL VERSUS COMPLETE OBST
[2019-11-24] MEDS ORDERED: AMINO ACIDS 4.25%/D5W 1,000 ML IV SCH (11:00)
[2019-11-24] MEDS: MULTIVIT INJ. ADULT COMBO WITH VIT K 1 COMBO 10 ML VIAL IV SCH (12:12)
--- NOTE | 2019-11-24 12:52 | CON.CARD ---
Consult Consult Specialty:: Cardiology Referred by:: Jayda Marinelli Reason for Consultation:: Equivocal TnI - History of Present Illness Chief Complaint: Abdominal pain, sent in by GI for possible SBO History of Present Illness: 79F with hypothyroidism sent in for admission by Dr. Andres Houser for possible SBO on outpatient CT done as part of work up for ongoing abdominal pain and irregular bowel habits. CT scan here with dilated small bowel: 5cm, being evaluated by surgery. We are called to see patient for equivocal/ flat TnI trend. ECG c/w 2018 shows nonspecific T wave changes in V2/V3. PMH: As above, also RA. Hip replacement. She reports no CP, SOB, palps. Reports having complete cardiac work up several months ago with Dr. Epperson at [facility] (including nuclear stress test). - History Source History Provided By: Patient Limitations to Obtaining History: No Limitations - Past Medical History GUEST RELATIONS REPRESENTATIVE: No: Alzheimer's, CVA, Dementia, Migraine, Multiple Sclerosis, Peripheral Neuropathy, Parkinson's, Seizure, Syncope, TIA, Vertigo, Other Cardio/Vascular: No: AFIB, Aneurysm, Aortic Insufficiency, Aortic Stenosis, CAD , CHF, Deep Vein Thrombosis, HTN, Hyperlipdemia, SD, Mitral Insufficiency, Mitral Stenosis, Murmur, Pulmonary Hypertension, Other Pulmonary: No: Asthma, Bronchitis, Cancer, COPD, O2 Dependent, Pneumonia, Previously Intubated, Pulmonary Embolus, Pulmonary Fibrosis, Sleep Apnea, Other Gastrointestinal: No: Ascites, Cancer, Constipation, Crohn's Disease, Diverticulitis, Diverticulosis, Esophageal Varices, Gastritis, GERD, GI Bleed, Hemorrhoids, Hiatal Hernia, Inflamatory Bowel Disease, Irritable Bowel Disease, Pancreatitis, Peptic Ulcer Disease, Ulcerative Colitis, Other Hepatobiliary: No: Cirrhosis, Cholelithiasis, Cholecystitis, Choledocholithiasis , Hepatitis A, Hepatitis B, Hepatitis C, Other Renal/: No: Renal Failure, Renal Inusuff, BPH, Cancer, Hematuria, Hemodialysis , Neurogenic Bladder, Renal Calculi, UTI, Other Reproductive: No: Ectopic , Endometriosis, Fibroids, PID, Polycystic Ovary Syndrome, Postmenopausal, Other Heme/Onc: No: Anemia, B12 Deficiency, Bleeding Disorder, Cancer, Current Chemotherapy, Current Radiation Therapy, Hemochromatosis, Hypercoaguable State, Myeloproliferative Synd, Sickle Cell Disease, Sickle Cell Trait, Thrombocytopenia, Other Infectious Disease: No: AIDS, C-Diff, Herpes Zoster, HIV, MRSA, STD's, Tuberculosis, VREF, Other Endocrine: Yes: Hypothyroidism, Other (Reports history of Rheumatoid Arthritis. ) - Alcohol/Substance Use Hx Alcohol Use: No - Smoking History Smoking history: Former smoker Have you smoked in the past 12 months: No If you are a former smoker, when did you quit?: 2011 Home Medications - Allergies Allergies/Adverse Reactions: Allergies Allergy/AdvReac Type Severity Reaction Status Date / Time No Known Allergies Allergy Verified 06/14/19 12:39 - Home Medications Home Medications: Ambulatory Orders Gabapentin 300 mg PO DAILY 11/23/19 Levothyroxine [Synthroid -] 50 mcg PO DAILY 11/23/19 Pantoprazole Sodium [Protonix -] 20 mg PO DAILY 11/23/19 Rifaximin [Xifaxan] 550 mg PO TID 11/23/19 Tramadol HCl 50 mg PO TID PRN 11/23/19 Family Medical History Family History: Unremarkable (denies early CAD) Review of Systems Findings/Remarks: Denies CP, SOB, palps. - Review of Systems Constitutional: reports: No Symptoms Eyes: reports: No Symptoms Cardiovascular: reports: No Symptoms Respiratory: reports: No Symptoms Gastrointestinal: reports: Abdominal Pain, Constipation, Diarrhea Breasts: reports: No Symptoms Reported Musculoskeletal: reports: No Symptoms Integumentary: reports: No Symptoms Neurological: reports: No Symptoms Endocrine: reports: No Symptoms Hematology/Lymphatic: reports: No Symptoms Psychiatric: reports: No Symptoms Vital Signs: Vital Signs Temperature 97.6 F 11/24/19 10:00 Pulse Rate 76 11/24/19 10:00 Respiratory Rate 20 11/24/19 10:00 Blood Pressure 128/72 11/24/19 10:00 O2 Sat by Pulse Oximetry (%) 97 11/23/19 09:00 Constitutional: Yes: No Distress, Calm Eyes: Yes: Conjunctiva Clear Respiratory: Yes: CTA Bilaterally Gastrointestinal: Yes: Other (mildly distended. No rebound or guarding.) Cardiovascular: Yes: Regular Rate and Rhythm JVD: No Carotid Bruit: No Heart Sounds: Yes: S1, S2 (rrr) Edema: No Peripheral Pulses WNL: Yes Neurological: Yes: Alert, Oriented ...Motor Strength: WNL - Other Data Labs, Other Data: CBC, BMP 11/24/19 08:00 11/24/19 08:00 INR, PTT INR 1.05 (0.83-1.09) 11/23/19 07:56 Troponin, BNP 11/23/19 11/24/19 11/24/19 18:45 08:00 08:00 Troponin I 0.16 H 0.19 H 0.18 H Troponin, BNP 11/23/19 11/24/19 11/24/19 18:45 08:00 08:00 Troponin I 0.16 H 0.19 H 0.18 H See HPI: NSR 60bpm, TWI V2/V3-nonspecific. Echo: Report Reviewed (Done today: normal , mild TR) Ejection Fraction %: LVEF > or = 40 % Imaging - Results Cat Scan: Report Reviewed EKG: Image Reviewed Assessment/Plan IMP: Small bowel obstruction Equivocal TnI- flat Abnormal ECG: nonspecific T wave changes. Hypothyroidism RA REC: 1. Asymptomatic with borderline/equivocal flat TnI trend, does not represent ACS. 2. Echo shows normal biventricular function, no PHTN or , no pericardial disease. 3. She reports having normal cardiac work up including a nuclear stress test several months ago at [facility] prior to her hip surgery. D/w hospitalist to try and obtain reports. 4. Further management of SBO as per GI, surgery and general medical team. At this time, there are no absolute cardiac contraindications to colonoscopy.
--- NOTE | 2019-11-24 13:24 | ECHO ---
Name: HARRY ROB Exam:Adult Echocardiogram Study Date: 11/24/2019 11:21 AM Age: 79 yrs Reason For Study: Ischemia Height: 64 in Weight: 115 lb BSA: 1.5 m2 MMode/2D Measurements & Calculations IVSd: 0.81 cm Ao root diam: 2.7 cm LVIDd: 3.9 cm LA dimension: 3.2 cm LVIDs: 2.5 cm LVPWd: 0.92 cm LVPWs: 1.4 cm EDV(Teich): 64.8 ml ESV(Teich): 22.1 ml LVOT diam: 1.9 cm LAV (MOD-bp): 53.8 ml TAPSE: 2.1 cm RV S Jayden: 12.1 cm/sec Doppler Measurements & Calculations MV E max jayden: 81.0 cm/sec Ao V2 max: 139.7 cm/sec MV A max jayden: 97.5 cm/sec Ao max P.8 mmHg MV E/A: 0.83 LEIGHTON(V,D): 2.6 cm2 MV dec time: 0.16 sec LV V1 max P.2 mmHg TR max jayden: 235.6 cm/sec LV V1 max: 124.2 cm/sec TR max P.5 mmHg PA V2 max: 101.6 cm/sec Med Peak E' Jayden: 5.7 cm/sec PA max P.1 mmHg Med E/e': 14.3 Lat Peak E' Jayden: 10.9 cm/sec Lat E/e': 7.4 Procedure A complete two-dimensional transthoracic echocardiogram was performed (2D, M-mode, Doppler and color flow Doppler). Left Ventricle The left ventricular size, thickness and function are normal. The left ventricular ejection fraction is normal. Ejection Fraction = 60-65%. The left ventricular wall motion is normal. Right Ventricle The right ventricle is normal in size and function. Atria Normal left and right atrial size and function. Mitral Valve There is no mitral regurgitation noted. Tricuspid Valve There is mild tricuspid regurgitation. Right ventricular systolic pressure is normal. Aortic Valve The aortic valve is trileaflet. No hemodynamically significant valvular aortic stenosis. No aortic regurgitation is present. Pulmonic Valve There is no pulmonic valvular regurgitation. Great Vessels The aortic root is normal size. Pericardium/Pleura There is no pericardial effusion. Interpretation Summary The left ventricular size, thickness and function are normal The right ventricle is normal in size and function. There is mild tricuspid regurgitation. MD Mansoor Car 11/24/2019 01:23 PM
--- NOTE | 2019-11-24 13:42 | EKG ---
Test Reason : Blood Pressure : / mmHG Vent. Rate : 060 BPM Atrial Rate : 060 BPM P-R Int : 216 ms QRS Dur : 078 ms QT Int : 452 ms P-R-T Axes : 063 137 035 degrees QTc Int : 452 ms SINUS RHYTHM WITH 1ST DEGREE A-V BLOCK RIGHT AXIS DEVIATION LOW VOLTAGE QRS CANNOT RULE OUT ANTERIOR INFARCT (CITED ON OR BEFORE 22-NOV-2019) ABNORMAL ECG WHEN COMPARED WITH ECG OF 22-NOV-2019 22:05, FUSION COMPLEXES ARE NO LONGER PRESENT PREMATURE VENTRICULAR COMPLEXES ARE NO LONGER PRESENT PREMATURE ATRIAL COMPLEXES ARE NO LONGER PRESENT Confirmed by DORA LINARES MD ([id number]) on 11/24/2019 1:42:21 PM Referred By: ELIANA MAURER Confirmed By:DORA LINARES MD
--- NOTE | 2019-11-24 15:58 | PN.GI ---
GI Progress Note Subjective: No acute events Having bowel movements Abdominal distention improved per the patient - Objective Vital Signs: Vital Signs Temperature 97.5 F L 11/24/19 13:34 Pulse Rate 65 11/24/19 13:34 Respiratory Rate 18 11/24/19 13:34 Blood Pressure 117/65 11/24/19 13:34 O2 Sat by Pulse Oximetry (%) 97 11/23/19 09:00 Constitutional: Calm Eyes: No: Sclera Icterus Cardiovascular: Yes: Regular Rate and Rhythm Respiratory: Yes: CTA Bilaterally Gastrointestinal Inspection: No: Distention ...Auscultate: Yes: Normoactive Bowel Sounds ...Palpate: Yes: Soft. No: Hepatomegaly, Splenomegaly, Tenderness ...Percussion: No: Tympanitic Edema: No (No LE edema) Neurological: Yes: Alert Labs: CBC, BMP 11/24/19 08:00 11/24/19 08:00 INR, PTT INR 1.05 (0.83-1.09) 11/23/19 07:56 Problem List - Problems (1) SBO (small bowel obstruction) Assessment/Plan: Vs. Ileus, vs. Proximal colon process leading to partial bowel obstruction Plan for colonoscopy for further evaluation Patient given miralax prep by the primary team as opposed to PEG. Ordered magnesium citrate 200cc PO x 1 for the evening, tap water enema in the AM. Code(s): K56.609 - UNSP INTESTNL OBST, UNSP TO PARTIAL VERSUS COMPLETE OBST
[2019-11-24] MEDS ORDERED: MAGNESIUM CITRATE 300 ML BOTTLE PO ONE (18:00)
[2019-11-24] MEDS: PANTOPRAZOLE SODIUM 40 MG VIAL IVPUSH SCH (21:11)
--- NOTE | 2019-11-25 08:27 | PN ---
Progress Note, Physician Chief Complaint: Awaiting colonscopy. Bowel prep overnight. Having liquid stools. States shes hungry History of Present Illness: 79F PMH of Diverticulitis,diarrhea, gallstones, hypothyroidism, HTN, reynauds, glaucoma, chronic constipation who presents with small bowel obstruction. Surgery following and being medically managed - Current Medication List Current Medications: Active Medications Heparin Sodium (Porcine) (Heparin -) 5,000 unit SQ BID [facility] Last Admin: 11/24/19 21:11 Dose: 5,000 unit Amino Acids (Clinimix -) 1,000 mls @ 42 mls/hr IV Q24H [facility] Last Admin: 11/24/19 12:11 Dose: 42 mls/hr Levothyroxine Sodium (Synthroid Injection -) 37.5 mcg IVPUSH DAILY [facility] Last Admin: 11/24/19 09:32 Dose: 37.5 mcg Morphine Sulfate (Morphine Sulfate) 2 mg IVPUSH Q3H PRN PRN Reason: PAIN LEVEL 6-10 Multivitamins/Minerals (Infuvite Adult -) 10 ml IV Q24H [facility] Last Admin: 11/24/19 12:12 Dose: 10 ml Ondansetron HCl (Zofran Injection) 4 mg IVPUSH Q4H PRN PRN Reason: NAUSEA AND/OR VOMITING Pantoprazole Sodium (Protonix Iv) 40 mg IVPUSH HS [facility] Last Admin: 11/24/19 21:11 Dose: 40 mg - Objective Vital Signs: Vital Signs Temperature 97.5 F L 11/25/19 06:00 Pulse Rate 60 11/25/19 06:00 Respiratory Rate 17 11/25/19 06:00 Blood Pressure 124/58 L 11/25/19 06:00 O2 Sat by Pulse Oximetry (%) 97 11/23/19 09:00 Additional Findings/Remarks: Constitutional: Yes: No Distress, Calm, Thin Eyes: Yes: WNL, Conjunctiva Clear HENT: Yes: WNL, Atraumatic, Normocephalic Neck: Yes: WNL, Supple, Trachea Midline Cardiovascular: Yes: WNL, Regular Rate and Rhythm Respiratory: Yes: WNL, Regular, CTA Bilaterally Gastrointestinal: Yes: Soft, Hernia (right inguinal-reducible), Normoactive Bowel Sounds. Distension resolved ...Rectal Exam: Yes: Deferred Genitourinary: Yes: WNL Breast(s): Yes: WNL Musculoskeletal: Yes: WNL Extremities: Yes: WNL Edema: No Peripheral Pulses WNL: Yes Peripheral Pulses: Left Radial: 2+, Right Radial: 2+, Left Doralis Pedis: 2+, Right Dorsalis Pedis: 2+, Left Femoral: 2+, Right Femoral: 2+ Integumentary: Yes: WNL Neurological: Yes: WNL, Alert, Oriented ...Motor Strength: WNL Psychiatric: Yes: WNL Labs: CBC, BMP 11/24/19 08:00 11/24/19 08:00 INR, PTT INR 1.05 (0.83-1.09) 11/23/19 07:56 - ....Imaging Other: Report Reviewed (Colonscopy:redundunt colon. No evidence of proximal colonic obs. Severe divertisulitis in sigmoid colon with moderate in remainder. Bx sent) Problem List - Problems (1) Hypothyroidism Assessment/Plan: c/w IV synthroid change back to PO when tolerating diet Code(s): E03.9 - HYPOTHYROIDISM, UNSPECIFIED Qualifiers: Hypothyroidism type: unspecified Qualified Code(s): E03.9 - Hypothyroidism , unspecified (2) HTN (hypertension) Assessment/Plan: normotensive presently Code(s): I10 - ESSENTIAL (PRIMARY) HYPERTENSION Qualifiers: Hypertension type: essential hypertension Qualified Code(s): I10 - Essential (primary) hypertension (3) Prophylactic measure Assessment/Plan: FEN Fluids: IVF while NPO Electrolytes: monitor & replete as needed Nutrition: Stop clinimix when tolerating diet DVT moderate risk sq heparin Dispo Maintain as inpatient full code discharge planning Code(s): Z29.9 - ENCOUNTER FOR PROPHYLACTIC MEASURES, UNSPECIFIED (4) Severe malnutrition Assessment/Plan: severe malnutrition as evidenced by BMI 19, temporal and temporal wasting detary supplements when able to eat will start [employer] bid Code(s): E43 - UNSPECIFIED SEVERE PROTEIN-CALORIE MALNUTRITION (5) Transaminitis Assessment/Plan: mild transaminitis resolved avoid heaptoxic agents follows with Dr Mccurdy She had a EGD/enteroscopy 09/[address] scan at the time revealed dilated bowel. Code(s): R74.0 - NONSPEC ELEV OF LEVELS OF TRANSAMNS & LACTIC ACID DEHYDRGNSE (6) SBO (small bowel obstruction) Assessment/Plan: resolving Colonscopy:redundunt colon. No evidence of proximal colonic obs. Severe divertisulitis in sigmoid colon with moderate in remainder. Bx sent diet advanced Code(s): K56.609 - UNSP INTESTNL OBST, UNSP TO PARTIAL VERSUS COMPLETE OBST (7) Elevated troponin I level Assessment/Plan: no c/o chest pain no ischemic changes on EKG, most likely r/t demand ischemia vs ACS appreciates cardiology consult obtained Lexiscan results from 01/27 and negative no further trop needed Code(s): R79.89 - OTHER SPECIFIED ABNORMAL FINDINGS OF BLOOD CHEMISTRY (8) Inguinal hernia Assessment/Plan: reducible right inguinal hernia noted Code(s): K40.90 - UNIL INGUINAL HERNIA, W/O OBST OR GANGR, NOT SPCF RECUR (9) Connective tissue disease Assessment/Plan: pt declined to see rheumotolgy stopped seeing home rheumo and tx for RA labs to r/o sclemaderma pending Code(s): M35.9 - SYSTEMIC INVOLVEMENT OF CONNECTIVE TISSUE, UNSPECIFIED (10) Hypokalemia Assessment/Plan: K 3.2 repleted Code(s): E87.6 - HYPOKALEMIA (11) Diverticulitis of colon Assessment/Plan: Colonscopy done by Dr Mccurdy :redundunt colon. No evidence of proximal colonic obs. Severe divertisulitis in sigmoid colon with moderate in remainder. Bx sent Code(s): K57.32 - DVTRCLI OF LG INT W/O PERFORATION OR ABSCESS W/O BLEEDING Visit type - Emergency Visit Emergency Visit: Yes ED Registration Date: 11/22/19 Care time: The patient presented to the Emergency Department on the above date and was hospitalized for further evaluation of their emergent condition. - New Patient This patient is new to me today: No - Critical Care Critical Care patient: No - Discharge Referral Referred to [facility] Med P.C.: No
[2019-11-25] MEDS: HEPARIN NA (PORCINE) 5,000 UNITS/ML 1ML VIAL SQ SCH ×2 (09:19→21:29)
[2019-11-25] MEDS: LEVOTHYROXINE SODIUM 100 MCG VIAL IVPUSH SCH (09:24)
[2019-11-25 09:35] LABS: BASO % 0.9 % (0-2.0); EOS % 0.8 % (0-4.5); HEMATOCRIT 38.8 % (32.4-45.2); HEMOGLOBIN 13.3 GM/dL (10.7-15.3); LYMPH % 18.6 % (8-40); MCH 29.7 pg (25.7-33.7); MCHC 34.1 g/dl (32.0-36.0); MEAN CELL VOLUME 87.1 fl (80-96); MEAN PLT VOLUME 7.8 fl (7.5-11.1); MONO % 6.1 % (3.8-10.2); NEUT % 73.6 % (42.8-82.8); PLATELET COUNT 361 K/MM3 (134-434); RBC 4.46 M/mm3 (3.60-5.2); RDW 15.5 % (11.6-15.6); WHITE BLOOD COUNT 7.2 K/mm3 (4.0-10.0)
[2019-11-25 10:21] LABS: BILIRUBIN,TOTAL 0.7 mg/dL (0.2-1); BLOOD UREA NITROGEN 9.3 mg/dL (7-18); CALCIUM 8.4 mg/dL (8.5-10.1); CREATININE 0.5 mg/dL (0.55-1.3); MAGNESIUM 2.2 mg/dL (1.8-2.4); POTASSIUM 3.2 mmol/L (3.5-5.1); TOT PROT 7.4 g/dl (6.4-8.2)
--- NOTE | 2019-11-25 10:36 | PN ---
Progress Note, Physician History of Present Illness: Patient of Dr. Arellano from office s/p colonoscopy to evaluate SBO vs ileus, abd distension improved, tolerating lunch. - Current Medication List Current Medications: Active Medications Heparin Sodium (Porcine) (Heparin -) 5,000 unit SQ BID [facility] Last Admin: 11/25/19 09:19 Dose: Not Given Amino Acids (Clinimix -) 1,000 mls @ 42 mls/hr IV Q24H [facility] Last Admin: 11/24/19 12:11 Dose: 42 mls/hr Levothyroxine Sodium (Synthroid Injection -) 37.5 mcg IVPUSH DAILY [facility] Last Admin: 11/25/19 09:24 Dose: 37.5 mcg Morphine Sulfate (Morphine Sulfate) 2 mg IVPUSH Q3H PRN PRN Reason: PAIN LEVEL 6-10 Multivitamins/Minerals (Infuvite Adult -) 10 ml IV Q24H [facility] Last Admin: 11/24/19 12:12 Dose: 10 ml Ondansetron HCl (Zofran Injection) 4 mg IVPUSH Q4H PRN PRN Reason: NAUSEA AND/OR VOMITING Pantoprazole Sodium (Protonix Iv) 40 mg IVPUSH HS [facility] Last Admin: 11/24/19 21:11 Dose: 40 mg - Objective Vital Signs: Vital Signs Temperature 97.5 F L 11/25/19 06:00 Pulse Rate 60 11/25/19 06:00 Respiratory Rate 17 11/25/19 06:00 Blood Pressure 124/58 L 11/25/19 06:00 O2 Sat by Pulse Oximetry (%) 97 11/23/19 09:00 Constitutional: Yes: No Distress, Calm Neck: Yes: Supple Cardiovascular: Yes: Regular Rate and Rhythm Respiratory: Yes: Regular, CTA Bilaterally Gastrointestinal: Yes: Normal Bowel Sounds, Soft Edema: No Labs: CBC, BMP 11/25/19 07:54 11/25/19 07:54 INR, PTT INR 1.05 (0.83-1.09) 11/23/19 07:56 Problem List - Problems (1) Demand ischemia Code(s): I24.8 - OTHER FORMS OF ACUTE ISCHEMIC HEART DISEASE (2) Connective tissue disease Code(s): M35.9 - SYSTEMIC INVOLVEMENT OF CONNECTIVE TISSUE, UNSPECIFIED (3) HTN (hypertension) Code(s): I10 - ESSENTIAL (PRIMARY) HYPERTENSION Qualifiers: Hypertension type: essential hypertension Qualified Code(s): I10 - Essential (primary) hypertension (4) Hypothyroidism Code(s): E03.9 - HYPOTHYROIDISM, UNSPECIFIED Qualifiers: Hypothyroidism type: unspecified Qualified Code(s): E03.9 - Hypothyroidism , unspecified Assessment/Plan Echo shows normal biventricular function, no PHTN or , no pericardial disease. Nuclear stress test done 01/[address] Epperson's office ([facility]) . Normal perfusion, No TID. EF normal (after Regadenoson). IMP: 1. Small bowel obstruction vs ileus since resolved 2. CAD, Demand ischemia - flat 3. Abnormal ECG: nonspecific T wave changes. 4. Hypothyroidism 5. RA REC: 1. Asymptomatic with borderline/equivocal flat TnI trend, does not represent ACS. 2. Replete K, resume ASA 81 qd, Toprol XL 25 qd as hemodynamics tolerate 3. F/u colonoscopy results 4. Patient to f/u with Dr. Epperson as outpatient
[2019-11-25] MEDS ORDERED: POTASSIUM CHLORIDE 40 MEQ in AMINO ACIDS 4.25%/D5W 1,000 ML IVPB SCH (11:00)
--- NOTE | 2019-11-25 13:21 | PN ---
Progress Note (short form) - Note Progress Note: Colonoscopy complete. Report left in procedural section of the physical chart and will be scanned into [facility] EKG abnormalities / correction of lytes per primary team Problem List - Problems (1) SBO (small bowel obstruction) Code(s): K56.609 - UNSP INTESTNL OBST, UNSP TO PARTIAL VERSUS COMPLETE OBST
[2019-11-25] MEDS ORDERED: POTASSIUM CHLORIDE ORAL LIQUID 20 MEQ/15 ML PO ONE (13:59)
[2019-11-25] MEDS: MULTIVIT INJ. ADULT COMBO WITH VIT K 1 COMBO 10 ML VIAL IV SCH (14:07)
[2019-11-25] MEDS: PANTOPRAZOLE SODIUM 40 MG VIAL IVPUSH SCH (21:29)
--- NOTE | 2019-11-26 08:02 | PN.GI ---
GI Progress Note Subjective: NO NEW COMPLAINTS - FEELING WELL AMBULATING - Objective Vital Signs: Vital Signs Temperature 97.4 F L 11/26/19 06:00 Pulse Rate 69 11/26/19 06:00 Respiratory Rate 11/26/19 06:00 Blood Pressure 124/64 11/26/19 06:00 O2 Sat by Pulse Oximetry (%) 98 11/25/19 21:00 Constitutional: Well Nourished, No Distress, Calm Eyes: Yes: WNL HENT: Yes: WNL Neck: Yes: WNL, Supple Cardiovascular: Yes: WNL Respiratory: Yes: WNL, Regular, CTA Bilaterally Gastrointestinal Inspection: Yes: WNL ...Auscultate: Yes: Normoactive Bowel Sounds Edema: No Labs: CBC, BMP 11/25/19 07:54 11/25/19 07:54 INR, PTT INR 1.05 (0.83-1.09) 11/23/19 07:56 Problem List - Problems (1) Diverticulosis Assessment/Plan: FURTHER EVALUATION FOR UNDERLYING RHEUM PROCESS S/P COLONOSCOPY WITH FINDINGS OF A SMALL POLYP / DIVERTICULOSIS ADVANCE DIET TOLERATED WILL F/U Code(s): K57.90 - DVRTCLOS OF INTEST, PART UNSP, W/O PERF OR ABSCESS W/O BLEED (2) Connective tissue disease Code(s): M35.9 - SYSTEMIC INVOLVEMENT OF CONNECTIVE TISSUE, UNSPECIFIED
[2019-11-26 08:55] LABS: EOS % 2.9 % (0-4.5); HEMOGLOBIN 12.3 GM/dL (10.7-15.3); LYMPH % 26.7 % (8-40); MCHC 33.4 g/dl (32.0-36.0); MEAN PLT VOLUME 8.1 fl (7.5-11.1); MONO % 7.7 % (3.8-10.2); NEUT % 61.7 % (42.8-82.8); PLATELET COUNT 308 K/MM3 (134-434); RBC 4.25 M/mm3 (3.60-5.2); RDW 15.9 % (11.6-15.6); WHITE BLOOD COUNT 6.3 K/mm3 (4.0-10.0)
[2019-11-26 09:12] LABS: ALBUMIN 2.9 g/dl (3.4-5.0); BILIRUBIN,TOTAL 0.4 mg/dL (0.2-1); CALCIUM 8.7 mg/dL (8.5-10.1); CREATININE 0.4 mg/dL (0.55-1.3); POTASSIUM 3.8 mmol/L (3.5-5.1)
[2019-11-26] MEDS: LEVOTHYROXINE NA 50 MCG TABLET (FP) PO SCH (10:28)
[2019-11-26] MEDS: HEPARIN NA (PORCINE) 5,000 UNITS/ML 1ML VIAL SQ SCH ×3 (10:29→21:48)
[2019-11-26 11:07] LABS: SCLERODERMA 70 AB <0.2 AI (0.0-0.9)
--- NOTE | 2019-11-26 13:42 | PN ---
Physical Exam: SUBJECTIVE: Patient seen and examined. She has no complaints. OBJECTIVE: Vital Signs Period Temp Pulse Resp BP Sys/[place] Pulse Ox Last 24 Hr 97.4 F-98.6 F 51-74 20-20 101-126/52-67 98 GENERAL: The patient is awake, alert, and fully oriented, in no acute distress. LUNGS: Breath sounds equal, clear to auscultation bilaterally, no wheezes, no crackles, no accessory muscle use. HEART: Regular rate and rhythm, S1, S2 without murmur, rub or gallop. ABDOMEN: Soft, nontender, nondistended, normoactive bowel sounds, no guarding, no rebound, no hepatosplenomegaly, no masses. EXTREMITIES: 2+ pulses, warm, well-perfused, no edema. Proximal left forearm is red and indurated at the site of a previous IV. Laboratory Results - last 24 hr 11/25/19 11/26/19 11/26/19 07:54 07:50 07:50 WBC 6.3 RBC 4.25 Hgb 12.3 Hct 37.0 MCV 87.0 MCH 29.0 MCHC 33.4 RDW 15.9 H Plt Count 308 MPV 8.1 Absolute Neuts (auto) 3.9 Neutrophils % 61.7 Lymphocytes % 26.7 D Monocytes % 7.7 Eosinophils % 2.9 D Basophils % 1.0 Nucleated RBC % 0 Sodium 137 Potassium 3.8 Chloride 104 Carbon Dioxide 27 Anion Gap 6 L BUN 7.0 Creatinine 0.4 L Est GFR (CKD-EPI)AfAm 116.44 Est GFR (CKD-EPI)NonAf 100.47 Random Glucose 87 Calcium 8.7 Magnesium 2.0 Total Bilirubin 0.4 AST 41 H ALT 47 Alkaline Phosphatase 89 Total Protein 7.0 Albumin 2.9 L Scl-70 Ab Confirm <0.2 Active Medications Generic Name Dose Route Start Last Admin Trade Name Freq PRN Reason Stop Dose Admin Heparin Sodium (Porcine) 5,000 unit 11/23/19 22:00 11/26/19 10:38 Heparin - SQ 5,000 unit BID PRATIK Administration Levothyroxine Sodium 50 mcg 11/26/19 10:15 11/26/19 10:28 Synthroid - PO 50 mcg 0700 PRATIK Administration Ondansetron HCl 4 mg 11/23/19 02:38 Zofran Injection IVPUSH Q4H PRN NAUSEA AND/OR VOMITING Pantoprazole Sodium 40 mg 11/23/19 22:00 11/25/19 21:29 Protonix Iv IVPUSH 40 mg HS PRATIK Administration ASSESSMENT/PLAN: This is a 79 year old woman with a history of HTN, hypothyroidism, diverticulosis, RA, glaucoma, chronic constipation who presented to the ED after outpatient CT enterography showed SBO. 1. SBO - Resolved - Colonoscopy 11/25 showed redundant colon, severe diverticulosis of sigmoid, moderate diverticulosis throughout the remainder of the colon, 6mm polyp in sigmoid, large internal hemorrhoids 2. Demand ischemia 3. HTN - BP ok on no medication 4. Hypothyroidism - Continue Synthroid 5. Rheumatoid arthritis 6. Hypokalemia - Improved 7. Phlebitis of left forearm - Warm compresses as needed 8. Disposition - Ok for discharge home - patient says she would prefer to stay 2 more days Visit type - Emergency Visit Emergency Visit: Yes ED Registration Date: 11/22/19 Care time: The patient presented to the Emergency Department on the above date and was hospitalized for further evaluation of their emergent condition. - New Patient This patient is new to me today: Yes Date on this admission: 11/26/19 - Critical Care Critical Care patient: No - Discharge Referral Referred to [facility] Med P.C.: No
[2019-11-26] MEDS: PANTOPRAZOLE SODIUM 40 MG VIAL IVPUSH SCH (21:48)
[2019-11-26 22:06] LABS: SPECKLED PATTERN >1:1280 (.)
[2019-11-27] MEDS ORDERED: DOCUSATE SODIUM 100 MG CAPSULE (FP) PO PRN (01:10)
[2019-11-27] MEDS ORDERED: SENNOSIDES 8.6MG TABLET (FP) PO SCH (01:11)
[2019-11-27] MEDS: LEVOTHYROXINE NA 50 MCG TABLET (FP) PO SCH (06:18)
--- NOTE | 2019-11-27 07:57 | PN.GI ---
GI Progress Note Subjective: no new complaints - Objective Vital Signs: Vital Signs Temperature 98.1 F 11/27/19 05:44 Pulse Rate 63 11/27/19 05:44 Respiratory Rate 19 11/27/19 05:44 Blood Pressure 106/63 11/27/19 05:44 O2 Sat by Pulse Oximetry (%) 98 11/26/19 21:00 Constitutional: Well Nourished, No Distress Eyes: Yes: WNL, Conjunctiva Clear HENT: Yes: WNL, Atraumatic Neck: Yes: WNL Cardiovascular: Yes: WNL Respiratory: Yes: WNL, Regular, CTA Bilaterally Gastrointestinal Inspection: Yes: WNL ...Auscultate: Yes: Normoactive Bowel Sounds Extremities: Yes: WNL Edema: No Labs: CBC, BMP 11/26/19 07:50 11/26/19 07:50 INR, PTT INR 1.05 (0.83-1.09) 11/23/19 07:56 Problem List - Problems (1) Diverticulosis Assessment/Plan: FURTHER EVALUATION FOR UNDERLYING RHEUM PROCESS S/P COLONOSCOPY WITH FINDINGS OF A SMALL POLYP / DIVERTICULOSIS ADVANCE DIET TOLERATED WILL F/U Code(s): K57.90 - DVRTCLOS OF INTEST, PART UNSP, W/O PERF OR ABSCESS W/O BLEED (2) Connective tissue disease Code(s): M35.9 - SYSTEMIC INVOLVEMENT OF CONNECTIVE TISSUE, UNSPECIFIED
--- NOTE | 2019-11-27 08:04 | PN ---
Progress Note, Physician History of Present Illness: 79F PMH of Diverticulitis,diarrhea, gallstones, hypothyroidism, HTN, reynauds, glaucoma, chronic constipation who presents with small bowel obstruction. Surgery following and being medically managed - Current Medication List Current Medications: Active Medications Docusate Sodium (Colace -) 100 mg PO BID PRN PRN Reason: CONSTIPATION Heparin Sodium (Porcine) (Heparin -) 5,000 unit SQ BID [facility] Last Admin: 11/26/19 21:48 Dose: 5,000 unit Levothyroxine Sodium (Synthroid -) 50 mcg PO 0700 [facility] Last Admin: 11/27/19 06:18 Dose: 50 mcg Ondansetron HCl (Zofran Injection) 4 mg IVPUSH Q4H PRN PRN Reason: NAUSEA AND/OR VOMITING Pantoprazole Sodium (Protonix Iv) 40 mg IVPUSH [facility] Last Admin: 11/26/19 21:48 Dose: 40 mg Senna (Senna -) 1 tab PO [facility] Last Admin: 11/27/19 01:42 Dose: 1 tab - Objective Vital Signs: Vital Signs Temperature 98.1 F 11/27/19 05:44 Pulse Rate 63 11/27/19 05:44 Respiratory Rate 19 11/27/19 05:44 Blood Pressure 106/63 11/27/19 05:44 O2 Sat by Pulse Oximetry (%) 98 11/26/19 21:00 Additional Findings/Remarks: Constitutional: Yes: No Distress, Calm, Thin Eyes: Yes: WNL, Conjunctiva Clear HENT: Yes: WNL, Atraumatic, Normocephalic Neck: Yes: WNL, Supple, Trachea Midline Cardiovascular: Yes: WNL, Regular Rate and Rhythm Respiratory: Yes: WNL, Regular, CTA Bilaterally Gastrointestinal: Yes: Soft, Hernia (right inguinal-reducible), Normoactive Bowel Sounds. Distension resolved ...Rectal Exam: Yes: Deferred Genitourinary: Yes: WNL Breast(s): Yes: WNL Musculoskeletal: Yes: WNL Extremities: Yes: WNL Edema: No Peripheral Pulses WNL: Yes Peripheral Pulses: Left Radial: 2+, Right Radial: 2+, Left Doralis Pedis: 2+, Right Dorsalis Pedis: 2+, Left Femoral: 2+, Right Femoral: 2+ Integumentary: Yes: WNL Neurological: Yes: WNL, Alert, Oriented ...Motor Strength: WNL Psychiatric: Yes: WNL Labs: CBC, BMP 11/26/19 07:50 11/26/19 07:50 INR, PTT INR 1.05 (0.83-1.09) 11/23/19 07:56 Problem List - Problems (1) Hypothyroidism Code(s): E03.9 - HYPOTHYROIDISM, UNSPECIFIED Qualifiers: Hypothyroidism type: unspecified Qualified Code(s): E03.9 - Hypothyroidism , unspecified (2) HTN (hypertension) Code(s): I10 - ESSENTIAL (PRIMARY) HYPERTENSION Qualifiers: Hypertension type: essential hypertension Qualified Code(s): I10 - Essential (primary) hypertension (3) Prophylactic measure Code(s): Z29.9 - ENCOUNTER FOR PROPHYLACTIC MEASURES, UNSPECIFIED (4) Severe malnutrition Code(s): E43 - UNSPECIFIED SEVERE PROTEIN-CALORIE MALNUTRITION (5) Transaminitis Code(s): R74.0 - NONSPEC ELEV OF LEVELS OF TRANSAMNS & LACTIC ACID DEHYDRGNSE (6) SBO (small bowel obstruction) Code(s): K56.609 - UNSP INTESTNL OBST, UNSP TO PARTIAL VERSUS COMPLETE OBST (7) Elevated troponin I level Code(s): R79.89 - OTHER SPECIFIED ABNORMAL FINDINGS OF BLOOD CHEMISTRY (8) Inguinal hernia Code(s): K40.90 - UNIL INGUINAL HERNIA, W/O OBST OR GANGR, NOT SPCF RECUR (9) Connective tissue disease Code(s): M35.9 - SYSTEMIC INVOLVEMENT OF CONNECTIVE TISSUE, UNSPECIFIED (10) Hypokalemia Code(s): E87.6 - HYPOKALEMIA (11) Diverticulitis of colon Code(s): K57.32 - DVTRCLI OF LG INT W/O PERFORATION OR ABSCESS W/O BLEEDING
[2019-11-27] MEDS: HEPARIN NA (PORCINE) 5,000 UNITS/ML 1ML VIAL SQ SCH (08:59)
[2019-11-27] MEDS ORDERED: PANTOPRAZOLE 20 MG TABLET PO SCH (10:00)
[2019-11-27] MEDS ORDERED: GABAPENTIN 300 MG CAPSULE PO SCH (10:00)
--- NOTE | 2019-11-27 11:47 | DS ---
Physical Exam: SUBJECTIVE: Patient seen and examined 79F PMH of Diverticulitis,diarrhea, gallstones, hypothyroidism, HTN, reynauds, glaucoma, chronic constipation who presents with small bowel obstruction. Medically managed. Colonoscopy done that revealed diverticulitis. Follow up with Dr Fernando OBJECTIVE: Vital Signs Period Temp Pulse Resp BP Sys/[place] Pulse Ox Last 24 Hr 97.9 F-98.6 F 56-68 19-20 106-132/60-70 98 PHYSICAL EXAM Constitutional: Yes: No Distress, Calm, Thin Eyes: Yes: WNL, Conjunctiva Clear HENT: Yes: WNL, Atraumatic, Normocephalic Neck: Yes: WNL, Supple, Trachea Midline Cardiovascular: Yes: WNL, Regular Rate and Rhythm Respiratory: Yes: WNL, Regular, CTA Bilaterally Gastrointestinal: Yes: Soft, Hernia (right inguinal-reducible), Normoactive Bowel Sounds. Distension resolved ...Rectal Exam: Yes: Deferred Genitourinary: Yes: WNL Breast(s): Yes: WNL Musculoskeletal: Yes: WNL Extremities: Yes: WNL Edema: No Peripheral Pulses WNL: Yes Peripheral Pulses: Left Radial: 2+, Right Radial: 2+, Left Doralis Pedis: 2+, Right Dorsalis Pedis: 2+, Left Femoral: 2+, Right Femoral: 2+ Integumentary: Yes: WNL Neurological: Yes: WNL, Alert, Oriented ...Motor Strength: WNL Psychiatric: Yes: WNL LABS Laboratory Results - last 24 hr 11/25/19 07:54 VIVIEN Screen Positive H VIVIEN Homogeneous Pattern TNP VIVIEN Nucleolar Pattern TNP VIVIEN Spindle Ella Pattern TNP VIVIEN Midbody Pattern TNP VIVIEN Centriole Pattern TNP VIVIEN Nuclear Dot Pattern TNP VIVIEN PCNA Pattern TNP VIVIEN Nuclear Membr Pat TNP VIVIEN Speckled Pattern >1:1280 H VIVIEN Centromere Pattern TNP HOSPITAL COURSE: Date of Admission:11/22/19 Date of Discharge: 11/27/19 Problem List - Problems (1) Hypothyroidism Assessment/Plan: c/w synthroid at home Code(s): E03.9 - HYPOTHYROIDISM, UNSPECIFIED Qualifiers: Hypothyroidism type: unspecified Qualified Code(s): E03.9 - Hypothyroidism , unspecified (2) HTN (hypertension) Assessment/Plan: normotensive Code(s): I10 - ESSENTIAL (PRIMARY) HYPERTENSION Qualifiers: Hypertension type: essential hypertension Qualified Code(s): I10 - Essential (primary) hypertension (3) Prophylactic measure Assessment/Plan: FEN tolerating regular diet Dispo discharge to home Code(s): Z29.9 - ENCOUNTER FOR PROPHYLACTIC MEASURES, UNSPECIFIED (4) Severe malnutrition Assessment/Plan: severe malnutrition as evidenced by BMI 19, temporal and temporal wasting dietary supplements c/w Prosource bid Code(s): E43 - UNSPECIFIED SEVERE PROTEIN-CALORIE MALNUTRITION (5) Transaminitis Assessment/Plan: mild transaminitis resolved avoid heaptoxic agents follows with Dr Fernando Code(s): R74.0 - NONSPEC ELEV OF LEVELS OF TRANSAMNS & LACTIC ACID DEHYDRGNSE (6) SBO (small bowel obstruction) Assessment/Plan: resolved Colonscopy:redundunt colon. No evidence of proximal colonic obs. Severe divertisulitis in sigmoid colon with moderate in remainder. Bx sent diet advanced Code(s): K56.609 - UNSP INTESTNL OBST, UNSP TO PARTIAL VERSUS COMPLETE OBST (7) Elevated troponin I level Assessment/Plan: no c/o chest pain no ischemic changes on EKG, most likely r/t demand ischemia vs ACS appreciates cardiology consult obtained Lexiscan results from 01/27 and negative no further trop needed Code(s): R79.89 - OTHER SPECIFIED ABNORMAL FINDINGS OF BLOOD CHEMISTRY (8) Inguinal hernia Assessment/Plan: reducible right inguinal hernia noted stable Code(s): K40.90 - UNIL INGUINAL HERNIA, W/O OBST OR GANGR, NOT SPCF RECUR (9) Connective tissue disease Assessment/Plan: pt declined to see rheumotolgy stopped seeing home rheumo and tx for RA labs to r/o sclemaderma pending Code(s): M35.9 - SYSTEMIC INVOLVEMENT OF CONNECTIVE TISSUE, UNSPECIFIED (10) Hypokalemia Assessment/Plan: resolved Code(s): E87.6 - HYPOKALEMIA (11) Diverticulitis of colon Assessment/Plan: Colonscopy done by Dr Fernando redundunt colon. No evidence of proximal colonic obs. Severe divertisulitis in sigmoid colon with moderate in remainder. Bx sent Code(s): K57.32 - DVTRCLI OF LG INT W/O PERFORATION OR ABSCESS W/O BLEEDING 79F PMH of Diverticulitis,diarrhea, gallstones, hypothyroidism, HTN, reynauds, glaucoma, chronic constipation who presents with small bowel obstruction. Medically managed. Colonoscopy done that revealed diverticulitis. Follow up with Dr Fernando Minutes to complete discharge: 40 Discharge Summary Problems reviewed: Yes Reason For Visit: INTESTINAL OBSTRUCTION Current Active Problems Connective tissue disease (Acute) Demand ischemia (Acute) Diverticulitis of colon (Acute) Diverticulosis (Acute) Elevated troponin I level (Acute) HTN (hypertension) (Acute) Hypokalemia (Acute) Hypothyroidism (Acute) Inguinal hernia (Acute) Prophylactic measure (Acute) SBO (small bowel obstruction) (Acute) Severe malnutrition (Acute) Transaminitis (Acute) Hospital Course: HOSPITAL COURSE: Date of Admission:11/22/19 Date of Discharge: 11/27/19 Problem List - Problems (1) Hypothyroidism Assessment/Plan: c/w synthroid at home Code(s): E03.9 - HYPOTHYROIDISM, UNSPECIFIED Qualifiers: Hypothyroidism type: unspecified Qualified Code(s): E03.9 - Hypothyroidism , unspecified (2) HTN (hypertension) Assessment/Plan: normotensive Code(s): I10 - ESSENTIAL (PRIMARY) HYPERTENSION Qualifiers: Hypertension type: essential hypertension Qualified Code(s): I10 - Essential (primary) hypertension (3) Prophylactic measure Assessment/Plan: FEN tolerating regular diet Dispo discharge to home Code(s): Z29.9 - ENCOUNTER FOR PROPHYLACTIC MEASURES, UNSPECIFIED (4) Severe malnutrition Assessment/Plan: severe malnutrition as evidenced by BMI 19, temporal and temporal wasting dietary supplements c/w Prosource bid Code(s): E43 - UNSPECIFIED SEVERE PROTEIN-CALORIE MALNUTRITION (5) Transaminitis Assessment/Plan: mild transaminitis resolved avoid heaptoxic agents follows with Dr Fernando Code(s): R74.0 - NONSPEC ELEV OF LEVELS OF TRANSAMNS & LACTIC ACID DEHYDRGNSE (6) SBO (small bowel obstruction) Assessment/Plan: resolved Colonscopy:redundunt colon. No evidence of proximal colonic obs. Severe divertisulitis in sigmoid colon with moderate in remainder. Bx sent diet advanced Code(s): K56.609 - UNSP INTESTNL OBST, UNSP TO PARTIAL VERSUS COMPLETE OBST (7) Elevated troponin I level Assessment/Plan: no c/o chest pain no ischemic changes on EKG, most likely r/t demand ischemia vs ACS appreciates cardiology consult obtained Lexiscan results from 01/27 and negative no further trop needed Code(s): R79.89 - OTHER SPECIFIED ABNORMAL FINDINGS OF BLOOD CHEMISTRY (8) Inguinal hernia Assessment/Plan: reducible right inguinal hernia noted stable Code(s): K40.90 - UNIL INGUINAL HERNIA, W/O OBST OR GANGR, NOT SPCF RECUR (9) Connective tissue disease Assessment/Plan: pt declined to see rheumotolgy stopped seeing home rheumo and tx for RA labs to r/o sclemaderma pending Code(s): M35.9 - SYSTEMIC INVOLVEMENT OF CONNECTIVE TISSUE, UNSPECIFIED (10) Hypokalemia Assessment/Plan: resolved Code(s): E87.6 - HYPOKALEMIA (11) Diverticulitis of colon Assessment/Plan: Colonscopy done by Dr Fernando redundunt colon. No evidence of proximal colonic obs. Severe divertisulitis in sigmoid colon with moderate in remainder. Bx sent Code(s): K57.32 - DVTRCLI OF LG INT W/O PERFORATION OR ABSCESS W/O BLEEDING 79F PMH of Diverticulitis,diarrhea, gallstones, hypothyroidism, HTN, reynauds, glaucoma, chronic constipation who presents with small bowel obstruction. Medically managed. Colonoscopy done that revealed diverticulitis. Follow up with Dr Fernando Condition: Improved - Instructions Diet, Activity, Other Instructions: DISCHARGE YOUR VISIT You came to the hospital because you developed a small bowel obstruction. It resolved slowly with bowel rest. A coloscopy was done by Dr Fernando that showed diverticulitis and 2 polyps were removed. Follow up with Dr Fernando in his office. Increase your fluids and activity to keep your bowels moving. Eat a high fiber diet MEDICATIONS Please continue to take your home medications as prescribed. There was no changes DIET Continue your home diet ADDITIONAL CARE Please make an appointment to see your primary care provider, Dr Fernando 2 week from today. ADDITIONAL INFORMATION Please call 911 or come directly to the emergency department if you experience unusual headache, vision change, shortness of breath, chest pain, numbness, tingling, loss of alertness/awareness, loss of function, unusual bleeding or any alarming symptoms. Thank you for allowing me to care for you. Steve Marinelli, ACNP, [facility] [phone] Referrals: Valeriano Houser DO [Primary Care Provider] - Disposition: HOME - Home Medications Comprehensive Discharge Medication List: Ambulatory Orders Gabapentin 300 mg PO DAILY 11/23/19 Levothyroxine [Synthroid -] 50 mcg PO DAILY 11/23/19 Pantoprazole Sodium [Protonix -] 20 mg PO DAILY 11/23/19 Rifaximin [Xifaxan] 550 mg PO TID 11/23/19 Tramadol HCl 50 mg PO TID PRN 11/23/19 Docusate Sodium [Colace -] 100 mg PO BID PRN #60 capsule 11/27/19 Sennosides [Senna -] 1 tab PO HS #30 tablet 11/27/19 Prescription Drug Monitoring Program (I-STOP) results: I-STOP reviewed and no issues identified Problem List - Problems (1) Hypothyroidism Code(s): E03.9 - HYPOTHYROIDISM, UNSPECIFIED Qualifiers: Hypothyroidism type: unspecified Qualified Code(s): E03.9 - Hypothyroidism , unspecified (2) HTN (hypertension) Code(s): I10 - ESSENTIAL (PRIMARY) HYPERTENSION Qualifiers: Hypertension type: essential hypertension Qualified Code(s): I10 - Essential (primary) hypertension (3) Prophylactic measure Code(s): Z29.9 - ENCOUNTER FOR PROPHYLACTIC MEASURES, UNSPECIFIED (4) Severe malnutrition Code(s): E43 - UNSPECIFIED SEVERE PROTEIN-CALORIE MALNUTRITION (5) Transaminitis Code(s): R74.0 - NONSPEC ELEV OF LEVELS OF TRANSAMNS & LACTIC ACID DEHYDRGNSE (6) SBO (small bowel obstruction) Code(s): K56.609 - UNSP INTESTNL OBST, UNSP TO PARTIAL VERSUS COMPLETE OBST (7) Elevated troponin I level Code(s): R79.89 - OTHER SPECIFIED ABNORMAL FINDINGS OF BLOOD CHEMISTRY (8) Inguinal hernia Code(s): K40.90 - UNIL INGUINAL HERNIA, W/O OBST OR GANGR, NOT SPCF RECUR (9) Connective tissue disease Code(s): M35.9 - SYSTEMIC INVOLVEMENT OF CONNECTIVE TISSUE, UNSPECIFIED (10) Hypokalemia Code(s): E87.6 - HYPOKALEMIA (11) Diverticulitis of colon Code(s): K57.32 - DVTRCLI OF LG INT W/O PERFORATION OR ABSCESS W/O BLEEDING This patient is new to me today: No Emergency Visit: Yes ED Registration Date: 11/22/19 Care time: The patient presented to the Emergency Department on the above date and was hospitalized for further evaluation of their emergent condition. Critical Care patient: No - Discharge Referral Referred to [facility] Med P.C.: No
[2019-11-27 11:58] VITALS: BP 136/75; PULSE 76; TEMP 98
--- NOTE | 2019-11-27 12:03 | PN ---
Progress Note (short form) - Note Progress Note: Chief Complaint: Events noted, notes reviewed, History of Present Illness: Seen and examined. Medications: Current Medications Amino Acids (Prosource No Carb Liquid Pkt) 30 ml PO BID@0800,1730 [facility] Docusate Sodium (Colace -) 100 mg PO BID PRN PRN Reason: CONSTIPATION Gabapentin (Neurontin -) 300 mg PO DAILY [facility] Last Admin: 11/27/19 08:59 Dose: 300 mg Heparin Sodium (Porcine) (Heparin -) 5,000 unit SQ BID [facility] Last Admin: 11/27/19 08:59 Dose: 5,000 unit Levothyroxine Sodium (Synthroid -) 50 mcg PO 0700 [facility] Last Admin: 11/27/19 06:18 Dose: 50 mcg Ondansetron HCl (Zofran Injection) 4 mg IVPUSH Q4H PRN PRN Reason: NAUSEA AND/OR VOMITING Pantoprazole Sodium (Protonix -) 20 mg PO DAILY [facility] Last Admin: 11/27/19 08:59 Dose: 20 mg Rifaximin (Xifaxan -) 550 mg PO TID [facility] Senna (Senna -) 1 tab PO HS [facility] Last Admin: 11/27/19 01:42 Dose: 1 tab Vital Signs: Last Vital Signs Temp Pulse Resp BP Pulse Ox 98 F 76 20 136/75 98 11/27/19 09:00 11/27/19 09:00 11/27/19 09:00 11/27/19 09:00 11/26/19 21:00 Intake & Output 11/24/19 11/25/19 11/26/19 11/27/19 23:59 23:59 23:59 23:59 Intake Total 1730 1160 920 100 Balance 1730 1160 920 100 Constitutional: No Distress, Calm Neck: Supple Negative JVD Respiratory: Clear to A&P Bilaterally Cardiovascular: S1 S2 Regular Rate and Rhythm Gastrointestinal: Soft Benign Normal Bowel Sounds Ext: No Edema Labs: CBC, BMP 11/26/19 07:50 11/26/19 07:50 Assessment/Plan ASSESSMENT: 1. Small bowel obstruction vs ileus since resolved 2. CAD, Demand ischemia - flat 3. Abnormal ECG: nonspecific T wave changes. 4. Hypothyroidism 5. RA PLAN: 1. Asymptomatic with borderline/equivocal flat TnI trend, does not represent ACS. 2. Replete K, resume ASA 81 qd, Toprol XL 25 qd as hemodynamics tolerate 3. F/u colonoscopy results Alex Chadwick MD
[2019-11-27] MEDS ORDERED: RIFAXIMIN 550 MG TABLET (UD) PO SCH (14:00)
[2019-11-27] MEDS ORDERED: AMINO ACIDS/PROTEIN HYDROLYS 30 ML LIQUID.PKT PO SCH (17:30)
--- NOTE | 2019-11-29 09:22 | PATH ---
Surgical Pathology Report Patient Name: HARRY ROB [facility]. Rec. #: [id number] /Age/Gender: 1940 (Age: 79) / F Account: [id number] Location: [address] [place] [address] Taken: 11/25/2019 Received: 11/25/2019 Reported: 11/29/2019 Physicians: Riaz Houser D.O. Specimen(s) Received A: SIGMOID COLON POLYP B: RIGHT COLON C: TRANSVERSE COLON D: DESCENDING COLON E: SIGMOID COLON Clinical History Abnormal CT scan Postoperative diagnosis: Diverticulosis, polyp Final Diagnosis A. SIGMOID COLON, POLYP, POLYPECTOMY: POLYPOID COLONIC MUCOSA WITH PROMINENT LYMPHOID AGGREGATE. B. COLON, RIGHT, BIOPSY: COLONIC MUCOSA WITHOUT SIGNIFICANT PATHOLOGIC FINDINGS. C. TRANSVERSE COLON, BIOPSY: COLONIC MUCOSA WITH LYMPHOID AGGREGATES. D. DESCENDING COLON, BIOPSY: COLONIC MUCOSA WITH PROMINENT LYMPHOID AGGREGATE. E. SIGMOID COLON, BIOPSY: COLONIC MUCOSA WITHOUT SIGNIFICANT PATHOLOGIC FINDINGS. Electronically Signed Megan Smiley M.D. Gross Description A. Received in formalin, labeled "sigmoid colon polyp" is a bourne, irregular portion of soft tissue measuring 0.3 cm. in greatest dimension. The specimen is submitted in toto in one cassette. B. Received in formalin, labeled "biopsy right colon microscopic colitis" are 2 bourne, irregular portions of soft tissue averaging 0.2 cm. in greatest dimension. The specimens are submitted in toto in one cassette. C. Received in formalin, labeled "biopsy transverse colon microscopic colitis" are 7 bourne, irregular portions of soft tissue ranging from 0.1-0.3 cm. in greatest dimension. The specimens are submitted in toto in one cassette. D. Received in formalin, labeled "biopsy descending colon microscopic colitis" are 3 bourne, irregular portions of soft tissue ranging from 0.1-0.3 cm. in greatest dimension. The specimens are submitted in toto in one cassette. E. Received in formalin, labeled "sigmoid colon microscopic colitis" are 2 bourne, irregular portions of soft tissue averaging 0.2 cm. in greatest dimension. The specimens are submitted in toto in one cassette. DL/11/25/2019 saudi/11/25/2019
== END 2019-11-27 14:29 | disposition home or self-care (01) | DRG 388 ==
LOC: JER 17:39 → JERBED 21:32 → J6S 11-23 02:32
PROVIDERS: ADMIT Internal Medicine; ATTEND Nurse Practitioner Acute Care
PROC: 0DBL8ZX Excision of Transverse Colon, Via Natural or Artificial Opening Endoscopic, Diagnostic (ICD-10-PCS; 2019-11-25)
PROC: 0DBM8ZX Excision of Descending Colon, Via Natural or Artificial Opening Endoscopic, Diagnostic (ICD-10-PCS; 2019-11-25)
PROC: 0DBN8ZX Excision of Sigmoid Colon, Via Natural or Artificial Opening Endoscopic, Diagnostic (ICD-10-PCS; principal; 2019-11-25 10:45)
DX: K56.609 Unspecified intestinal obstruction, unspecified as to partial versus complete obstruction (principal); E43 Unspecified severe protein-calorie malnutrition; Z68.1 Body mass index [BMI] 19.9 or less, adult; I24.8 Other forms of acute ischemic heart disease; K57.90 Diverticulosis of intestine, part unspecified, without perforation or abscess without bleeding; R74.0 Nonspecific elevation of levels of transaminase and lactic acid dehydrogenase [LDH]; K40.90 Unilateral inguinal hernia, without obstruction or gangrene, not specified as recurrent; M35.9 Systemic involvement of connective tissue, unspecified; I80.8 Phlebitis and thrombophlebitis of other sites; E87.6 Hypokalemia; E03.9 Hypothyroidism, unspecified; I25.10 Atherosclerotic heart disease of native coronary artery without angina pectoris; M06.9 Rheumatoid arthritis, unspecified; K63.5 Polyp of colon
CPT/HCPCS: 36415; 71046-TC-FY; 74019-TC-FY; 74176-TC; 80053; 81003; 82962; 83605; 83735; 84100; 84484; 85025; 85610; 85651; 85730; 86038; 86235; 86850; 86900; 86901; 87086; 87186; 88305-TC; 93005; 93010; 93306-TC; 99285-25; J0131; J1644; J7030